=== PATIENT | male | born 1955 | race Caucasian/White ===

== ENCOUNTER 2021-08-07 10:04 | Outpatient (CLI) | payer OTHER, SELFPAY ==
--- NOTE | 2021-08-07 | ECG_ITS ---
Measurements Intervals [place] Rate: 54 P: 47 NC: 150 QRS: 48 QRSD: 84 T: 22 QT: 380 QTc: 362 Interpretive Statements SINUS BRADYCARDIA WITH SINUS ARRHYTHMIA BORDERLINE ECG Electronically Signed On 08-07-2021 13:09:53 CDT by Bill Goldsmith D.O.
--- NOTE | ~2021-08-07 | XR_ITS ---
EXAMINATION: XR chest 2V EXAM DATE: 08/07/2021 11:14 INDICATION: Carpal tunnel syndrome. TECHNIQUE: Frontal and lateral projections of the chest obtained and reviewed. There is no prior augustine dy for comparison. FINDINGS: Symmetric nodular densities probably patient's nipples. The lungs are otherwise clear. The re are no pleural effusions. The cardiomediastinal silhouette is within normal limits. There is no pneumothorax suspected. 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 Right anterior subcutaneous BB-like foreign body. IMPRESSION: 1. No acute cardiopulmonary findings. 2. 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 Osteoblastic disease not excludable. Consider checking PSA or follow-up no nemergent bone scan. Reviewed, dictated and finalized at location B. IMPRESSION: 1. No acute cardiopulmonary findings. 2. 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 Osteoblastic disease not excludable. Consider checki ng PSA or follow-up nonemergent bone scan.
[2021-08-07 10:37] LABS: Hematocrit 45.3 % (42.0-52.0); Hemoglobin 15.9 g/dL (14.0-18.0); Mean Corpuscular HGB Conc 35.1 g/dl (32-36); Mean Corpuscular Hemoglobin 30.6 pg (26-34); Mean Corpuscular Volume 87.1 fl (80-100); Mean Platelet Volume 10.3 fl (7.4-10.4); Platelet Count Result 196 k/mm3 (150-375); Red Cell Distribution Width 12.4 % (11.5-14.5); White Blood Count 6.2 K/mm3 (4.5-10.0)
[2021-08-07 10:47] LABS: Prothrombin Time 12.7 Seconds (11.1-14.7)
[2021-08-07 10:48] LABS: Partial Thromboplastin Time 27.5 SECONDS (22.3-36.8)
[2021-08-07 10:55] LABS: Alanine Aminotransferase 23 U/L (4-50); Albumin Level 4.3 g/dL (3.5-5.1); Alkaline Phosphatase 41 U/L (38-126); Anion Gap 8 mmol/L (8-16); Aspartate Amino Transferase 28 U/L (17-59); Blood Urea Nitrogen 13 mg/dL (9-20); Calcium 9.6 mg/dL (8.4-10.2); Carbon Dioxide 25 mmol/L (22-30); Chloride 104 mmol/L (98-107); Estimated Glomerular Filt Rate > 60; Glucose 108 mg/dL (65-110); Potassium 4.4 mmol/L (3.4-5.0); Sodium 137 mmol/L (137-145)
== END 2021-08-07 10:05 | disposition home or self-care (01) ==
PROVIDERS: PCP Internal Medicine; Visit Provider Orthopaedic Surgery
DX: Z01.812 Encounter for preprocedural laboratory examination (principal); G56.02 Carpal tunnel syndrome, left upper limb; M89.9 Disorder of bone, unspecified
CPT/HCPCS: 36415; 71046; 80053; 85027; 85610; 85730; 93005

== ENCOUNTER 2021-12-02 21:42 | Emergency (ER) | payer OTHER, SELFPAY ==
--- NOTE | ~2021-12-02 | XR_ITS ---
EXAMINATION: XR chest 2V EXAM DATE: 12/02/2021 22:12 INDICATION: Dizziness After Doing Situps/Working Out For 40+ min TECHNIQUE: Frontal and lateral projections of the chest obtained and reviewed. Comparison is made to prior examination from 08/07/2021. FINDINGS: The lungs are clear. There are no pleural effusions. The cardiomediastinal silhouette is within normal limits. There is no pneumothorax suspected. Mild to moderate thoracic spondylosis. T here is a BB-like foreign body in the right anterior subcutaneous tissues. There is no significant in terval change. IMPRESSION: No acute cardiopulmonary findings. Reviewed, dictated and finalized at location G. 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
[2021-12-02 21:46] VITALS: BP 158/82; PULSE 62; RESP 18; TEMP 36.4; O2SAT 100
--- NOTE | 2021-12-02 21:56 | ECG_ITS ---
Measurements Intervals [place] Rate: 65 P: 1 UT: 140 QRS: 34 QRSD: 81 T: 31 QT: 362 QTc: 377 Interpretive Statements SINUS RHYTHM BASELINE ARTIFACT- I, II, AVR, AVL, AVF, V3-V4 NORMAL ECG Electronically Signed On 12-03-2021 7:33:30 OUTREACH AND EDUCATION SOCIAL WORKER by Bill Goldsmith D.O.
[2021-12-02 22:05] VITALS: BP 149/91; PULSE 59
--- NOTE | 2021-12-02 22:06 | ED.DIZZY ---
HPI - Dizziness General Chief Complaint: Dizziness Stated Complaint: dizzy Time Seen by Provider: 12/02/21 21:55 Source: patient History of Present Illness HPI Narrative: Patient presents with dizziness scribed as a sensation of the room spinning and that he is going to pass out. He had symptoms starting 2 days ago when he was working out and again this evening. Symptoms this evening started approximately an hour ago and have resolved but now he has mild head pressure . Reports his symptoms have occurred around his workout routine reports he does 300 sit ups and then develops his symptoms. He is concerned symptom to his medication as he takes metoprolol just prior to his exercise routine. Denies association with his of breath any nausea or vomiting denies any chest pain associated with the symptoms. Denies any recent fevers, cough, congestion, recent hospitalizations, recent surgeries. Related Data Home Medications Medication Instructions Recorded Confirmed metoprolol tartrate 25 mg PO BID 12/02/21 12/02/21 Allergies Allergy/AdvReac Type Severity Reaction Status Date / Time No Known Allergies Allergy Verified 12/02/21 21:55 Review of Systems Review of Systems: CONSTITUTIONAL: Denies fever, chills, or sweats. EYES: Denies visual changes, redness, or discharge. ENT: Denies rhinorrhea, congestion, sore throat, or otalgia. CARDIOVASCULAR: Denies chest pain, palpitations, or edema. RESPIRATORY: Denies cough or dyspnea. GASTROINTESTINAL: Denies abdominal pain, nausea, vomiting, or diarrhea. GENITOURINARY: Denies dysuria or hematuria. SKIN: Denies rash or itching. MUSCULOSKELETAL: Denies back pain, joint pain, or myalgia. NEUROLOGIC: Denies headache, numbness, dizziness, or weakness. PSYCHIATRIC: Denies anxiety or depression. All systems reviewed & are unremarkable except as noted in HPI and below PMFSH Past Medical History Medical History (Updated 12/03/21 @ 00:00 by Roslyn Dailsa) Hypertension Social History Social History (Updated 12/02/21 @ 22:07 by Octavio Packer MD) Smoking status: Never smoker Exam Narrative: GENERAL: Well-appearing, well-nourished, and in no acute distress. HEAD: Normocephalic, atraumatic. EYES: PERRLA and EOMI. ENT: Nares clear, no rhinorrhea or epistaxis. Mucous membranes moist. NECK: Supple. No masses. No JVD CHEST: Clear to auscultation. No respiratory distress. No wheezes rales or rhonchi HEART: Regular rate and rhythm. No murmur heard. Normal peripheral pulses. ABDOMEN: Soft, nontender, nondistended, normal active bowel sounds. EXTREMITIES: Normal range of motion. No edema. SKIN: Warm, dry, no rash. NEURO: Cranial nerves II through XII are intact patient has 5 out of 5 strength in all extremities sensation intact to light touch in all extremities patient has no dysdiadochokinesia of motions no dysmetria with [id number] alert and oriented x3. PSYCH: Normal mood and affect. Course Reevaluation(s) Reevaluation #1: Patient reports complete resolution of his symptoms after Tylenol. Patient is comfortable with outpatient plan. Date: 12/02/21 Time: 23:09 Vital Signs Vital signs: Vital Signs Temperature 36.4 C 12/02/21 21:46 Pulse Rate 62 12/02/21 21:46 Respiratory Rate 18 12/02/21 21:46 Blood Pressure 158/82 H 12/02/21 21:46 Pulse Oximetry 100 12/02/21 21:46 Temperature 36.4 C 12/02/21 21:46 Pulse Rate 61 12/02/21 23:21 Respiratory Rate 20 12/02/21 23:21 Blood Pressure 136/87 12/02/21 23:21 Pulse Oximetry 98 12/02/21 23:21 MDM - Dizziness MDM Narrative Medical decision making narrative: H&P as above, vss, pt looks clinically well, exam without focal neurological deficits or cerebellar signs labs unremarkable, img unremarkable, additional labs/img considered, symptomatic relief available as needed, on reevaluation pt continues to looks clinically well. Symptoms of unclear etiology may be related to beta blockade with physi
[2021-12-02 22:13] LABS: Basophils Percent Auto 0.6 % (0.2-1.2); Eosinophils Absolute Auto 0.2 K/mm3 (0-0.3); Eosinophils Percent Auto 2.8 % (0-4.4); Hemoglobin 15.3 g/dL (14.0-18.0); Immature Granulocyte Absolute 0.01 K/mm3 (0.00-0.031); Immature Granulocyte Percent A 0.1 % (0-0.5); Lymphocytes Absolute Auto 2.62 K/mm3 (0.9-3.2); Mean Corpuscular HGB Conc 34.8 g/dl (32-36); Mean Corpuscular Volume 89.2 fl (80-100); Mean Platelet Volume 10.7 fl (7.4-10.4); Monocytes Absolute Auto 0.8 K/mm3 (0.1-0.6); Monocytes Percent Auto 10.9 % (2.6-8.5); Neutrophils Absolute Auto 3.5 K/mm3 (1.3-6.7); Neutrophils Percent Auto 48.6 % (45.5-73.1); Platelet Count Result 192 k/mm3 (150-375); Red Blood Count 4.93 M/mm3 (4.6-6.20); Red Cell Distribution Width 12.3 % (11.5-14.5); White Blood Count 7.1 K/mm3 (4.5-10.0)
[2021-12-02 22:17] VITALS: BP 157/93; PULSE 59
[2021-12-02 22:19] VITALS: BP 156/89; PULSE 56
[2021-12-02] MEDS: ACETAMINOPHEN 500 MG TABLET 1000 MG PO (22:28)
[2021-12-02 22:53] LABS: Alanine Aminotransferase 25 U/L (4-50); Albumin Level 4.2 g/dL (3.5-5.1); Alkaline Phosphatase 65 U/L (38-126); Anion Gap 7 mmol/L (8-16); Aspartate Amino Transferase 31 U/L (17-59); Bilirubin,Total 0.8 mg/dL (0.2-1.3); Blood Urea Nitrogen 13 mg/dL (9-20); Calcium 9.2 mg/dL (8.4-10.2); Carbon Dioxide 27 mmol/L (22-30); Chloride 104 mmol/L (98-107); Estimated CRCL calculation 76 ml/min; Estimated Glomerular Filt Rate > 60; Glucose 133 mg/dL (65-110); Potassium 3.8 mmol/L (3.4-5.0); Sodium 138 mmol/L (137-145)
[2021-12-02 23:21] VITALS: BP 136/87; PULSE 61; RESP 20; O2SAT 98
== END 2021-12-02 23:19 | disposition home or self-care (01) ==
PROVIDERS: Emergency Provider Emergency Medicine; PCP Internal Medicine
DX: R42 Dizziness and giddiness (principal); I10 Essential (primary) hypertension
CPT/HCPCS: 36415; 71046; 80053; 85025; 93005; 99284; A9270

== ENCOUNTER 2022-01-13 10:30 | Outpatient (CLI) | payer OTHER, SELFPAY ==
[2022-01-13 10:58] LABS: Hematocrit 44.9 % (42.0-52.0); Hemoglobin 15.2 g/dL (14.0-18.0); Mean Corpuscular HGB Conc 33.9 g/dl (32-36); Mean Corpuscular Hemoglobin 30.6 pg (26-34); Mean Corpuscular Volume 90.5 fl (80-100); Mean Platelet Volume 10.6 fl (7.4-10.4); Platelet Count Result 197 k/mm3 (150-375); Red Blood Count 4.96 M/mm3 (4.6-6.20); Red Cell Distribution Width 12.4 % (11.5-14.5); White Blood Count 5.8 K/mm3 (4.5-10.0)
[2022-01-13 11:09] LABS: Alanine Aminotransferase 23 U/L (4-50); Albumin Level 4.2 g/dL (3.5-5.1); Alkaline Phosphatase 45 U/L (38-126); Anion Gap 5 mmol/L (8-16); Aspartate Amino Transferase 31 U/L (17-59); Bilirubin,Total 1.6 mg/dL (0.2-1.3); Blood Urea Nitrogen 14 mg/dL (9-20); Calcium 9.1 mg/dL (8.4-10.2); Carbon Dioxide 28 mmol/L (22-30); Chloride 104 mmol/L (98-107); Estimated Glomerular Filt Rate > 60; Glucose 104 mg/dL (65-110); Potassium 4.5 mmol/L (3.4-5.0); Sodium 137 mmol/L (137-145)
== END 2022-01-13 10:31 | disposition home or self-care (01) ==
LOC: ANHLAB 10:37
PROVIDERS: PCP Internal Medicine; Visit Provider Orthopaedic Surgery
DX: Z01.812 Encounter for preprocedural laboratory examination (principal); G56.01 Carpal tunnel syndrome, right upper limb
CPT/HCPCS: 36415; 80053; 85027

== ENCOUNTER 2022-02-01 07:28 | Outpatient (CLI) | payer OTHER, SELFPAY ==
--- NOTE | ~2022-02-01 | US_ITS ---
EXAMINATION: US aorta [facility] DATE: 02/01/2022 08:02 INDICATION: Abdominal aortic aneurysm screening. TECHNIQUE: Grayscale, color Doppler, and pulsed Doppler images of the aorta and common iliac arteries were obtained. COMPARISON: None. FINDINGS: The aorta is normal in caliber and demonstrates atherosclerosis. The right common iliac artery is nor mal in caliber. The left common iliac artery is normal in caliber. IMPRESSION: 1. No abdominal aortic aneurysm. Reviewed, dictated and finalized at location A.
--- NOTE | ~2022-02-01 | NM_ITS ---
EXAMINATION: NM bone scan whole body DATE: 02/01/2022 11:54 INDICATION: Sclerotic bone lesion on prior rib radiographs. TECHNIQUE: 24.2 mCi Tc-99m HDP was administered intravenously. Delayed whole-body scintigrams were o btained. COMPARISON: Chest radiographs dated 08/07/2021 and 12/02/2021 FINDINGS: Typical pattern of likely degenerative joint centered uptake at the bilateral shoulders, hands and wr ists, knees and feet and ankles. Foci of increased uptake likely related to dental disease at the rig ht maxilla and bilaterally at the mandible. No other suspicious foci of abnormal bone uptake. Specifi barby no abnormal uptake associated with the likely benign sclerotic lesion at the posterolateral lef t fifth rib. IMPRESSION: 1. No bone lesions suspicious for malignancy. Specifically no abnormal uptake associated with the pre viously noted likely benign sclerotic lesion of the posterolateral left fifth rib. Reviewed, dictated and finalized at location B. IMPRESSION: 1. No bone lesions suspicious for malignancy. Specifically no abnormal uptake a ssociated with the previously noted likely benign sclerotic lesion of the poste rolateral left fifth rib.
== END 2022-02-01 07:29 | disposition home or self-care (01) ==
PROVIDERS: PCP Internal Medicine; Visit Provider Internal Medicine
DX: Z87.891 Personal history of nicotine dependence (principal); M89.9 Disorder of bone, unspecified
CPT/HCPCS: 76706; 78306; A9561

== ENCOUNTER 2022-04-22 17:54 | Emergency (ER) | payer OTHER, SELFPAY ==
--- NOTE | 2022-04-22 18:03 | ED.ABDPAIN ---
HPI - Abdominal Pain General Chief Complaint: Abdominal Pain Stated Complaint: nausea/abdominal pain Time Seen by Provider: 04/22/22 18:28 Source: patient and RN notes reviewed Mode of arrival: ambulatory Limitations: no limitations History of Present Illness HPI narrative: 66-year-old male presents with concern for vomiting, nausea, abdominal pain. He reports symptoms started today,Reports he had 2 normal bowel movements today. He ate breakfast as usual and began having a stomachache, had a lower abdominal pain causing him to double over. Reports he vomited which relieved his pain. He then felt fine. Reports sometime later he began having the abdominal pain again, made himself vomit which relieves the pain. He reports he may be having small amount of fluid leaking from his rectum. He reports feeling some general malaise. Denies fever, current abdominal pain, upper respiratory symptoms. Reports he took 2 COVID test today that were negative. He reports he has not ate much today due to his symptoms. MD elicited complaint: abdominal pain Related Data Home Medications Medication Instructions Recorded Confirmed krill 350 mg-omega-3 90 mg-dha 24 2 cap PO DAILY 12/15/20 04/22/22 mg-epa 50 xr-naivtgz-xligm capsule (MegaRed Adkins-3 Krill Oil) multivitamin with minerals 1 tablet PO DAILY 12/15/20 04/22/22 (Hair,Skin and Nails tablet) Allergies Allergy/AdvReac Type Severity Reaction Status Date / Time No Known Allergies Allergy Verified 04/22/22 18:30 Review of Systems Review of Systems: CONSTITUTIONAL: Reports malaise. Denies chills, sweats, or fever. ENT: Denies rhinorrhea, congestion, sinus pain, otalgia or sore throat. CARDIOVASCULAR: Denies chest pain, palpitations, or edema. RESPIRATORY: Denies cough or dyspnea. GASTROINTESTINAL: Denies current abdominal pain. Reports episodes of abdominal pain, nausea, vomiting. Denies diarrhea, reports rectal leaking GENITOURINARY: Denies dysuria or hematuria. MUSCULOSKELETAL: Denies myalgia. NEUROLOGIC: Denies headache. All systems reviewed & are unremarkable except as noted in HPI and below PMFSH Past Medical History Medical History Cancer Colonoscopy planned 05/2019 Hypertension Family History Family History Father Cancer Social History Social History Smoking status: Never smoker Alcohol intake: never Substance use: never Substance use type: does not use Additional occupation/education comments: [employer] Gender identity (if verbalized by the patient): Male Comments At time of signature, agree with nursing past medical, surgical, social and family history. There is no relevant family history pertinent to the presenting complaint Exam Narrative: GENERAL: Well-appearing, and in no acute distress. HEAD: Normocephalic, atraumatic. EYES: PERRLA, conjunctivae clear ENT: Nares clear. Mucous membranes moist. NECK: Supple. CHEST: Speaks in full sentences. No respiratory distress. HEART: Regular rate and rhythm. ABDOMEN: Soft, obese, nondistended. No guarding, rebound tenderness, or rigid. No pulsatilla masses. Bowel sounds present in all four quadrants. No organomegaly. Negative Salazar?s sign. No periumbilical tenderness. No Supra public tenderness or distension. No hernia noted. No scars or surface trauma. SKIN: Warm, dry, no rash. NEURO: Alert and oriented x3. PSYCH: Normal mood and affect Course Course Emergency Course: Discussed limited diagnostic capability at [facility] for abdominal pain. Offered transfer to emergency department for further evaluation, patient does not choose to go to the emergency room at this time. Patient will be discharged with Zofran and strict instructions for return to the emergency room and [facility]
[2022-04-22 18:13] VITALS: BP 148/88; PULSE 85; RESP 18; TEMP 36.8; O2SAT 98
== END 2022-04-22 18:41 | disposition home or self-care (01) ==
PROVIDERS: Emergency Provider Nurse Practitioner; PCP Internal Medicine
DX: R10.9 Unspecified abdominal pain (principal); I10 Essential (primary) hypertension
CPT/HCPCS: 99213; G0463

== ENCOUNTER → 2022-04-26 11:48 | Outpatient (CLI) | payer OTHER, SELFPAY ==
--- NOTE | ~2022-04-26 | US_ITS ---
EXAMINATION: US carotid duplex BI DATE: 04/26/2022 12:09 INDICATION: Left carotid bruit TECHNIQUE: Grayscale, color Doppler, and pulsed Doppler images of the cervical carotid arteries were obtained. The degree of vessel stenosis is placed in one of the following categories: normal, <50%, 5 0-69%, >=70% but less than near-occlusion, near-occlusion, or total occlusion. Note that percent sten osis relative to normal distal artery lumen diameter is indirectly measured from velocity measurement s as described by Miky, et al. Radiology 2003; 229:340-346. Notes: Normal: Peak systolic velocity <125 centimeters/sec and no plaque <50%. Peak systolic velocity <125 ( EDV <40; ICA/CCA PSV ratio <2.0; used these factors only a tandem lesions or low cardiac output or co ntralateral disease) 50-69 %: PSV 125-230 (EDV 40-100; ratio 2-4) >= 70% but less than near occlusion: PSV greater than 230 (EDV > 100; ratio> 4.0) Near Occlusion: PSV that is variable; markedly narrowed lumen Occlusion: Absent flow on color/spectral Doppler and no lumen on banuelos scale. COMPARISON: 02/01/2022 FINDINGS: RIGHT: The right common carotid artery (CCA) peak systolic velocity (PSV) is 100 cm/s. The right internal ca rotid artery (ICA) PSV is 69 cm/s. The right ICA end-diastolic velocity (EDV) is 23 cm/s. The right I CA/CCA PSV ratio is 0.7. The external carotid artery (ECA) PSV is 108 cm/s. There is antegrade flow i n the right vertebral artery. LEFT: The left CCA PSV is 76 cm/s. The left ICA PSV is 74 cm/s. The left ICA EDV is 24 cm/s. The left ICA/C CA PSV ratio is 1.0. The ECA PSV is 129 cm/s. There is antegrade flow in the left vertebral artery. IMPRESSION: 1. Less than 50% stenosis in the right internal carotid artery by sonographic criteria. 2. Less than 50% stenosis in the left internal carotid artery by sonographic criteria. Reviewed, dictated and finalized at location A. IMPRESSION: 1. Less than 50% stenosis in the right internal carotid artery by sonographic c reilly. 2. Less than 50% stenosis in the left internal carotid artery by sonographic cr erlin.
== END ==
PROVIDERS: PCP Internal Medicine; Visit Provider Internal Medicine Cardiovascular Disease
DX: R09.89 Other specified symptoms and signs involving the circulatory and respiratory systems (principal); I65.23 Occlusion and stenosis of bilateral carotid arteries
CPT/HCPCS: 93880

== ENCOUNTER → 2023-03-17 10:07 | Outpatient (CLI) | payer OTHER, SELFPAY ==
--- NOTE | ~2023-03-17 | XR_ITS ---
Right Shoulder Technique: AP and scapular Y views were obtained. Clinical History: Pain Findings: No fracture or dislocation is seen. Osseous alignment is anatomic. The glenohumeral and acr omioclavicular joint spaces are preserved. Soft tissues are unremarkable. Impression: Unremarkable right shoulder radiographs. Reviewed, dictated and finalized at [facility]. Impression: Unremarkable right shoulder radiographs.
== END ==
PROVIDERS: PCP Family Medicine; Visit Provider Family Medicine
DX: M25.511 Pain in right shoulder (principal); Z12.5 Encounter for screening for malignant neoplasm of prostate; Z13.220 Encounter for screening for lipoid disorders; Z13.228 Encounter for screening for other metabolic disorders
CPT/HCPCS: 73030

== ENCOUNTER 2023-05-26 08:00 | Outpatient (RCR) | payer OTHER, SELFPAY ==
--- NOTE | 2023-03-24 09:54 | PTOPEVAL1 ---
Assessment and note entered by Victoria Garcia, PT Evaluation Information Assessment Status Evaluation Diagnosis R shoulder pain Onset 1 year ago Subjective Information gradual increase in pain of shoulder, intermittent over the past year; no trauma or injury; xray negative; do exercises for shoulder-long time history of doing: use hand wt for : 15#, 60 reps for overhead; 35# for elbow flexion x 10 reps; 35# for tricep overhead both hands; R hand dominant; retired; can do all home tasks; most pain at night with sleeping and reaching arm up overhead; Reported Pain Level Pain Score Self Report R shoulder Additional Pain Score Comments pain range in the past week 0-5/10; sharp pain-- posterior and lateral shoulder; some crunching in shoulder when move it; L arm is starting to have some of the same troubles as R, but not as bad; increase with lying on his R side- awaken from sleep 2x/night; jars some with walking; decrease pain with rest arm, advil; exercises with hand weights does not increase his pain; have not used heat, ice for shoulder--instruct on PRN use, 10-15 minutes; discussed support to arm with sitting; Assessment PT Clinical Summary Lenny has the diagnosis of R shoulder pain. He reports gradual increase in pain over the past year, intermittent, and awakens him from sleeping, unable to lie on R side. 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 The shoulder xray is negative. He is active and does fitness exercises with hand weights for shoulders daily. With the evaluation: his R shoulder ROM is WNL, with reports of tight and sounds from his shoulder weakness over scapular/posterior musculature; pain with palpation over anterior shoulder joint and resisted motions of shoulder abduction and ER. He has rounded shoulder posture. Skilled PT services are indicated for treatment of R shoulder impingement syndrome: modalities PRN for pain control; therapeutic exercises to improve posture and positioning of GH joint; education for h
--- NOTE | 2023-04-28 09:51 | PTOPPROG ---
Assessment and note entered by Victoria Garcia, PT Evaluation Information Assessment Status Progress Diagnosis R shoulder pain Onset 1 year ago Subjective Information Lenny reports: have been doing the exercises- helping; has not been using heat or ice--run out of time and do not do; have mobility in arm, but lose strength with forward reaching to lift something--ie-- washing car and lifting hose, reaching to top kitchen cabinet; Assessment PT Clinical Summary Lenny has received the PT evaluation and one treatment session. At the initial eval, he wanted to do the exercises on his own at home first. Compared to the initial evaluation: pain rating is worst, from 0-5/10 to 3-7/10, over anterior shoulder; previously was anterior and posterior aspects of shoulder; reported sleeping tolerance is worse, was 2x/night and now 3-4x/night is awakening due to pain in shoulder; active shoulder flexion, abduction and IR motions have increased, with flexion pain increases; strength of posterior shoulder/scapular complex have increased. The goals were partially met. Continue PT treatment, to further decrease pain and increase strength, with improved posture and positioning of GH to decrease impingement. Plan of Care Interventions Electrical Stimulation,Hot Pack/Cold Pack,Manual Therapy,Neuro Re-education,Patient Education,Therapeutic Activities,Therapeutic Exercise,Ultrasound,Other Other Interventions taping, IASTM PT Services Indicated Yes Treatment Frequency and 1x/wk for 4 weeks Duration These treatments will address the objective and functional deficits as defined above. The patient will be advanced safely and appropriately in order for the patient to progress towards his/her prior level of function. Additional exercises will be introduced and as well as a comprehensive home exercise program upon discharge, if needed, ?to ensure carryover of functional gains achieved in the clinic. This treatment plan has been reviewed and agreement upon by the patient.
--- NOTE | 2023-04-28 09:52 | OPREHPOC ---
Outpatient Therapy Plan of Care This is a Multidisciplinary Plan of Care that may contain components documented by all disciplines (PT, OT, and ST.) PT Problem 1 PT Problem #1 Knowledge Deficit PT Goal 1 Goal 1* indep with home exercise program 2* pt maintain correct shoulder position during session Progress Partially Met Comment 04-28-23 progress met goal 1 continue towards goals PT Problem 2 PT Problem #2 Pain PT Goal 1 Goal 1* pt report R shoulder pain rating of 2/10 at worst 2* pt report with sleeping, no awakening from sleep due to shoulder pain Progress Not Met Comment 04-28-23 progress goals not met: #1 7/10 at worst; #2- awaken 3-4x/ night NEW GOALS: 1* pain rating 4/10 at worst 2* pt report with sleeping, awaken 2x/night due to shoulder pain PT Problem 3 PT Problem #3 Impaired Strength PT Goal 1 Goal increase strength of R shoulder/scapular complex: pt perform 15 reps 1* prone scapular retraction with arm at 90' and 2 # hand weight 2* prone scapular retraction with arm overhead and 2# hand weight 3* standing shoulder flexion without an increase in pain 4* standing shoulder abduction without an increase in pain Progress Partially Met Comment 04-28-23 progress met goal 1 continue towards goals 2 & 3
--- NOTE | 2023-05-26 08:42 | PTOPDC ---
Assessment and note entered by Victoria Garcia, PT Evaluation Information Assessment Status Discharge Diagnosis R shoulder pain Onset 1 year ago Subjective Information Lenny reports: shoulder is better, still pops sometimes, hurts when go to move it quickly without thinking; doing all the exercises at home; able to reach up high into the cabinets now; am not doing any overhead weight with arms; Reported Pain Level Pain Score Self Report Additional Pain Score Comments pain range in the past week 0-3/10; awaken 2x/ night due to shoulder pain- hurts when lie on R shoulder; sleep semi-prone with pillow under stomach-- change with neck to R/L side; use ice PRN; occasionally takes aleve before sleeping to help the pain; Assessment PT Clinical Summary Lenny has received 6 PT sessions. Compared to the last reeval: improved in all areas pain has decreased from 3-7/10 to 0-3/10; sleeping improved from awakening 3-4x/night to 2x/ night; posture of shoulder; active ROM shoulder is without pain; home activities; HEP and education completed. He continues to have pain with quick motions/ jerking of shoulder. The goals were achieved. Discharge PT services. Plan of Care PT Services Indicated No
== END 2023-05-26 13:11 | disposition home or self-care (01) ==
LOC: ANHPT 08:00
PROVIDERS: PCP Family Medicine; Visit Provider Family Medicine
DX: M25.511 Pain in right shoulder (principal)
CPT/HCPCS: 97035; 97110; 97140; 97161; 97530

== ENCOUNTER → 2023-09-30 09:39 | Outpatient (CLI) | payer OTHER, SELFPAY ==
--- NOTE | ~2023-09-30 | US_ITS ---
US soft tissue groin RT DATE: 09/30/2023 09:52 INDICATION: Right groin pain; evaluate for hernia. TECHNIQUE: Real-time color flow imaging of right groin area, including Valsalva maneuver COMPARISON: None FINDINGS: There is a discrete hypoechoic area in the right groin medial to the common femoral vessels which increases in size to approximately 2.5 x 1.4 x 2.1 cm dimension with Valsalva maneuver, highly suggestive of right inguinal hernia. This can be confirmed by CT abdomen pelvis examination. IMPRESSION: Probable right inguinal hernia Reviewed, dictated and finalized at Location A. Reviewed, dictated and finalized at location A. 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
== END ==
PROVIDERS: PCP Family Medicine; Visit Provider Family Medicine
DX: K40.90 Unilateral inguinal hernia, without obstruction or gangrene, not specified as recurrent (principal); S76.211A Strain of adductor muscle, fascia and tendon of right thigh, initial encounter; X58.XXXA Exposure to other specified factors, initial encounter
CPT/HCPCS: 76882

== ENCOUNTER 2023-10-28 10:51 | Outpatient (CLI) | payer OTHER, SELFPAY ==
--- NOTE | 2023-10-28 11:12 | ECG_ITS ---
Measurements Intervals [place] Rate: 73 P: 22 WI: 148 QRS: 36 QRSD: 77 T: 41 QT: 349 QTc: 386 Interpretive Statements SINUS RHYTHM DELAYED PRECORDIAL R/S TRANSITION BASELINE ARTIFACT- I, II, III, AVL BORDERLINE ECG COMPARED TO ECG 08/07/2021 11:54:14 SINUS RHYTHM NOW PRESENT Electronically Signed On 10-28-2023 12:18:50 ENGINEERING DEPARTMENT CHAIR by Bill Goldsmith D.O.
== END 2023-10-28 10:52 | disposition home or self-care (01) ==
LOC: ANHSURGERY 10:53
PROVIDERS: PCP Family Medicine; Visit Provider Surgery
DX: K40.90 Unilateral inguinal hernia, without obstruction or gangrene, not specified as recurrent (principal); E78.00 Pure hypercholesterolemia, unspecified; Z01.818 Encounter for other preprocedural examination; R94.31 Abnormal electrocardiogram [ECG] [EKG]
CPT/HCPCS: 36415; 86850; 86900; 86901; 93005

== ENCOUNTER 2023-11-03 01:06 | Day surgery (SDC) | payer OTHER, SELFPAY ==
--- NOTE | 2023-10-27 08:36 | PC.NURSE ---
Report to the Outpatient Waiting Room, entrance under the green pavilion located off [facility], at time __1200 on date __11/03/23 . Planned Procedure Time: _1400 . Time changes happen often and if your time is changed the preop area will call you the afternoon before. - You and your visitor will be asked to self-screen and do not enter if you have any COVID symptoms. - A mask is optional within the hospital at this time. Patients may have clear liquids (water, carbonated beverages, clear teas, apple juice) until 3 hours prior to surgery ( 11:00 AM)with a maximum of 20 ounces. - No food from midnight until time of surgery Take the following medications with a SIP of water the morning of surgery: __METOPROLOL DO NOT STOP ANY OF YOUR OTHER PRESCRIPTION MEDICATIONS PRIOR TO SURGERY ?EXCEPT THE FOLLOWING Medications to discontinue per physician ALL VITAMINS AND SUPPLEMENTS 3 DAYS PRE OP LAST DOSE 10/30/23 Please no make-up, nail maldivian, hairspray, perfume, deodorant, or body powder the day of surgery. No jewelry (including any body piercings) or valuables the day of surgery, leave them at home. Please take a shower or bath the night before, or the morning of, surgery with an antibacterial soap. Wear comfortable, loose fitting clothing. Children are encouraged to wear pajamas. - Jewelry must be removed prior to entering the operating room. Rings and piercings that are not removed may be cut off. - The hospital will not accept responsibility for valuables. - Please leave all valuables, including medications, at home the day of surgery. If you are going home after surgery, a licensed taxi driver must drive you home. - NO public transportation without another adult if you receive anesthesia. - We recommend that an adult stay with you for 24 hours following discharge. - We also recommend that you do not drive, make important decision, drink alcoholic beverages, or take any drugs that were not prescribed by your health care provider for at least 24 hours after your discharge time. Follow any additional instructions given to you from your surgeon. If you or anyone in your household have experienced Covid symptoms in the past week, please notify your surgeon or the nurse liaison at the phone number below for possible testing. Telephone instructions given to _PATIENT and asked if any additional questions and then verbalized understanding. Patient advised to call surgeon office or pre surgery nurse liaison [phone] if any additional questions.
[2023-10-27 08:49] VITALS: BMI 29.4
[2023-11-03] VITALS (8 sets, daily range): BP systolic 119–140; BP diastolic 76–89; PULSE 74–94; RESP 12–16; TEMP 36.2–36.4; O2SAT 97–100
--- NOTE | 2023-11-03 11:57 | WPDHPUPDATE1 ---
History and Physical Update Update Date/Time: 11/03/23 11:57 History and Physical has been reviewed, including an updated exam of the patient. There are NO changes in the patient's condition. Risks, benefits, and alternatives have been discussed and questions answered. Patient agrees to proceed with procedure.
[2023-11-03] MEDS: ACETAMINOPHEN 500 MG TABLET 1000 MG PO (12:52)
[2023-11-03] MEDS: LACTATED RINGERS 1,000 ML 30 ML IV CONT ×3 (12:54→15:58)
[2023-11-03] MEDS: KETOROLAC 15 MG/ML VIAL (*BKC) IV PUSH (12:54)
--- NOTE | 2023-11-03 13:49 | WPDANESEPPF ---
Anes - Initial Pre Proc Eval Procedure: Operation Date: 11/03/23 14:00 Proposed Procedures p Robotic Assisted Right Inguinal Hernia Repair with Mesh - Radha Curiel MD Date/Time: 11/03/23 13:49 Surgeon: Radha Curiel MD Pre Op Diagnosis: Right Inguinal Hernia Patient Data Age: 68 Gender: M Height: 1.68 m Weight: 85.7 kg Last Vital Signs Temp 97.6 F 11/03/23 12:58 Pulse 82 11/03/23 12:58 Resp 16 11/03/23 12:58 BP 125/79 11/03/23 12:58 Pulse Ox 98 11/03/23 12:58 O2 Del Method Room Air 11/03/23 12:58 Allergies Allergy/AdvReac Type Severity Reaction Status Date / Time No Known Allergies Allergy Verified 11/03/23 11:52 Home Medications Medication Instructions Recorded Confirmed Type krill 350 mg-omega-3 90 mg-dha 24 2 cap PO DAILY 12/15/20 10/27/23 History mg-epa 50 nx-[id number]-ohbtc capsule (MegaRed Pearcy-3 Krill Oil) multivitamin with minerals 1 tablet PO DAILY 12/15/20 10/27/23 History (Hair,Skin and Nails tablet) turmeric 100 mg-maria elena 150 1 cap PO DAILY 03/17/23 10/27/23 History mg-olive 50 mg-oreg 150 mg-capryl capsule metoprolol succinate 25 mg See Rx Instructions .Route 06/01/23 10/27/23 Rx tablet,extended release 24 hr .COMPLEX #90 tabs rosuvastatin 5 mg tablet (Crestor) 5 mg PO DAILY #90 tabs 09/16/23 10/27/23 Rx Patient hx anesthesia problems: none Family hx anesthesia problems: none Results Review: All pre-operative results and documents have been reviewed as part of the pre-operative evaluation. [facility] Past Medical History Medical History Cancer Colonoscopy planned 05/2019 Hypertension Surgical History Surgical History History of carpal tunnel surgery of left wrist (~08/2021) History of carpal tunnel surgery of right wrist (~12/2021) History of colon resection (~2013) Hx of LASIK (~2000) Family History Family History Father Cancer Other Diabetes mellitus Social History Social History Smoking packs per day: 1 Smoking cigarettes per day: 20.0 Years smoked: 17 Smoking pack-years: 17.00 Smoking status: Former smoker Tobacco type: cigarettes Smoking end date: 10/10/88 Alcohol intake: current Alcohol use details: socially Substance use: never Substance use type: does not use Lack of Transportation: No Lack of Food: Never True Current Housing: I Have Housing Concerned About Future Housing: No Difficulty Paying Gas/Electric Bills: No Difficulty Paying for Meds: No Currently Unemployed: No Education: Decline to Answer Difficulty w/ Childcare or Family Care: No Living arrangements: alone Occupation/Education: retired Additional occupation/education comments: [employer] Gender identity (if verbalized by the patient): Male Spiritual care concerns: No Anes - Eval Final PreProcedure Day of Procedure 11/03/23 13:49 Patient weight: obese Heart: regular rate and rhythm Lungs: clear to auscultation Airway: Mallampati scale class II Neurological: alert and oriented Last oral intake: >/= 8 hours ASA classification: III Emergent: no Anesthetic plan: proceed Anesthesia type and monitoring: general ETT and standard monitoring Results Review: All pre-operative results and documents have been reviewed as part of the pre-operative evaluation. Informed Consent: The patient's anesthetic plan and its attendant risks and benefits were discussed with the patient/family/POA. Questions were solicited and answers provided to the satisfaction of the patient/family/POA.
[2023-11-03] MEDS: ceFAZolin 2 GM/D5W 50 ML 2 GM/50 ML BAG IVPB (14:05)
[2023-11-03] MEDS: BUPIVACAINE/EPINEPHRINE 0.5% 30 ML VIAL INFILTRATE (14:37)
[2023-11-03] MEDS: ONDANSETRON INJ 4 MG/2 ML VIAL IV PUSH (15:30)
--- NOTE | 2023-11-03 15:30 | P.OP_ITS ---
Procedure Note - Detailed Date of Procedure 11/03/23 Pre-op Diagnosis Right Inguinal Hernia Post-op Diagnosis Same Procedure Performed robotic assisted right inguinal hernia repair with mesh Surgeon Radha Curiel MD Anesthesia General Indications 68-year-old male with progressively worsening right inguinal hernia over the last few weeks Findings pantaloon right inguinal hernia Description of Procedure Patient was brought into the operating room and placed in the supine position. After adequate induction of general anesthesia, the patient was prepped and draped in normal sterile fashion. A time-out was then done to verify the patient's identity, as well as the procedure being performed. Began by making a 8 mm incision in the supraumbilical region, a Veress needle was then placed into the peritoneal cavity. CO2 gas was then insufflated and after adequate pneumoperitoneum was achieved, the Veress needle was removed. I then placed an 8 mm trocar through this incision. I then placed the endoscope through this trocar site and under direct visualization placed 2 further 8 mm ports in the right and left mid abdomen. The [employer] robot was then docked to the 3 trocar sites. I then scrubbed out and went to the robotic console. Upon examining the pelvis, it was noted that the patient had a moderate right inguinal hernia. The left side was examined and no hernia defect was noted. I began by making a preperitoneal flap approximately 6 cm superior to the defect. This flap was carried medially past the umbilical ligaments in laterally to the transversalis. It then began dissection of my medial compartment taking this down to the pubic tubercle. There was a small direct defect that was easily reduced back into the preperitoneal space. I then began the lateral dissection taking this down to the transversalis fascia. Once these compartments were achieved, I began dissection around the cord structures. A moderate indirect hernia was noted at this point. Using careful dissection, was able to reduce indirect hernia sac off the cord structures. There was also a large lipoma of the cord that was reduced back into the preperitoneal space. Once this was adequately done, I went ahead and placed a large piece of 3D Max mesh into the abdominal cavity. The mesh was carefully positioned, centering the center of the mesh over the indirect defect. Once this was done, was very satisfied with our repair. Using 3-0 Vicryl sutures, I tacked the mesh medially to Tang's ligament. Two lateral sutures were placed from the mesh to the transversalis fascia. I then closed the peritoneal flap with a running 2.0 V Lock suture. The abdomen was then desufflated, and all ports were removed. All incisions were then closed with the 4.0 monocryl suture. Dermabond was placed on each wound. The patient tolerated the procedure well, was extubated in the operating room postoperatively, and will now be transferred to the recovery room in stable condition. Implants large 3DMax mesh Estimated Blood Loss 10 Drains No Packing No Pathology None sent Complications No immediate complications Condition Stable Disposition PACU [facility] Billing Surgery - Charge Forward: Surgery Billing
[2023-11-03] MEDS: oxyCODONE HCL (*CRX) 5 MG TAB IR PO (16:35)
[2023-11-03] MEDS: diphenhydrAMINE HCl INJ 50 MG/ML VIAL 12.5 MG IV PUSH (17:16)
== END 2023-11-03 15:55 | disposition home or self-care (01) ==
PROVIDERS: PCP Family Medicine; Visit Provider Surgery
PROC: 8E0Y4CZ Robotic Assisted Procedure of Lower Extremity, Percutaneous Endoscopic Approach (ICD-10-PCS; CPT 49650; principal; 2023-11-03 14:00)
DX: K40.90 Unilateral inguinal hernia, without obstruction or gangrene, not specified as recurrent (principal); I10 Essential (primary) hypertension; E66.9 Obesity, unspecified; Z68.30 Body mass index [BMI] 30.0-30.9, adult; Z98.890 Other specified postprocedural states; Z90.49 Acquired absence of other specified parts of digestive tract; Z87.891 Personal history of nicotine dependence; Z85.9 Personal history of malignant neoplasm, unspecified; Z80.9 Family history of malignant neoplasm, unspecified
CPT/HCPCS: 49650; S2900; A9270; C1781; J0690; J1100; J1170; J1200; J1596; J1885; J2250; J2405; J2704; J2710; J3010; J7120

== ENCOUNTER 2024-04-22 15:11 | Emergency (ER) | payer OTHER, SELFPAY ==
--- NOTE | ~2024-04-22 | CT_ITS ---
Noncontrast CT scan of the cervical spine Technique: Multiple contiguous axial [address] images of the cervical spine were obtained and rec onstructed in 2D sagittal and coronal planes on the acquisition scanner. Dose reduction technique was used on this scan by utilizing automated exposure control, adjustment of the mA and/or kV according to patient size. The dose-length product (DLP) was 681.00 mGy-cm. Clinical History: Pain Findings: No acute fracture. There is reversal of the normal cervical lordosis. There is 3 mm anterol isthesis of C3 over C4. There is severe degenerative disc narrowing C3-C4, C5-C6, and C6-C7.. There i s fusion of the right C2-C3 facet joint. There is partial fusion across the C2-C3 disc space. There is disc osteophyte complex and facet arthropathy at C3-C4, with severe bilateral neural foramin al narrowing. There is bilateral neural foraminal narrowing at C4-C5. There is bilateral neural gina inal narrowing at C5-C6, disc osteophyte complex. There is bilateral neural foraminal narrowing at C6 -C7, with disc osteophyte complex. No prevertebral soft tissue swelling. Impression: No acute fracture. 3 mm anterolisthesis of C3 over C4. Moderate to advanced degenerative spondylosis, as above. Reviewed, dictated and finalized at [facility]. Impression: No acute fracture. 3 mm anterolisthesis of C3 over C4. Moderate to advanced degenerative spondylosis, as above.
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
[2024-04-22 15:27] VITALS: BP 154/89; PULSE 83; RESP 20; TEMP 36.3; O2SAT 99
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
[2024-04-22] MEDS: CYCLOBENZAPRINE HCL 10 MG TABLET PO (19:00)
[2024-04-22] MEDS: ACETAMINOPHEN 500 MG TABLET 1000 MG PO (19:00)
== END 2024-04-22 20:25 | disposition home or self-care (01) ==
PROVIDERS: Emergency Provider Physician Assistant; PCP Family Medicine
DX: S20.213A Contusion of bilateral front wall of thorax, initial encounter (principal); M43.12 Spondylolisthesis, cervical region; I10 Essential (primary) hypertension; Z87.891 Personal history of nicotine dependence; Z85.038 Personal history of other malignant neoplasm of large intestine; Z90.49 Acquired absence of other specified parts of digestive tract; M47.812 Spondylosis without myelopathy or radiculopathy, cervical region; V49.40XA Driver injured in collision with unspecified motor vehicles in traffic accident, initial encounter
CPT/HCPCS: 70450; 71046; 71110; 72125; 99284; A9270

== ENCOUNTER 2024-06-12 10:15 | Outpatient (RCR) | payer OTHER, SELFPAY ==
--- NOTE | 2024-05-08 16:31 | OPREHPOC ---
Outpatient Therapy Plan of Care This is a Multidisciplinary Plan of Care that may contain components documented by all disciplines (PT, OT, and ST.) PT Problem 1 PT Problem #1 Knowledge Deficit PT Goal 1 Goal Pt to be IND with issued HEP Target Visit 4 PT Problem 2 PT Problem #2 Pain PT Goal 1 Goal Pt to report L shoulder pain no greater than 3/10 in the last week. Target Visit 10 PT Goal 2 Goal Pt to report 75% improvement in overall symptoms. Target Visit 10 PT Problem 3 PT Problem #3 Impaired Range of Motion PT Goal 1 Goal Pt to improve active cervical rotation to 55 deg. Target Visit 10 PT Goal 2 Goal Pt to improve active shoulder flexion to 140 deg and active shoulder abduction to 130 deg. Target Visit 10 PT Problem 4 PT Problem #4 Impaired Strength PT Goal 1 Goal Pt to improve gross shoulder strength to 4+/5. Target Visit 10 PT Goal 2 Goal Pt to be able to lift 5lb overhead without an increase in pain. Target Visit 10
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
--- NOTE | 2024-05-30 09:53 | PCPTNOTE ---
Patient was canceled 05/23/24 due to therapist out with illness.
--- NOTE | 2024-05-30 09:58 | PCPTNOTE ---
Patient was canceled 05/25/24 due to therapist out with illness.
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
== END 2024-06-12 13:10 | disposition home or self-care (01) ==
LOC: ANHGOSHPT 10:15
PROVIDERS: PCP Family Medicine; Visit Provider Family Medicine
DX: M25.512 Pain in left shoulder (principal)
CPT/HCPCS: 97014; 97110; 97140; 97161; 97530; G0283

== ENCOUNTER 2024-08-22 14:09 | Emergency (ER) | payer OTHER, SELFPAY ==
[2024-08-22 14:18] VITALS: BP 145/85; PULSE 73; RESP 18; TEMP 36.6; O2SAT 99
--- NOTE | 2024-08-22 14:27 | ED_ITS ---
HPI - General Adult General Chief complaint: Dental/Oral Stated complaint: neck swelling Time Seen by Provider: 08/22/24 14:27 Source: patient Mode of arrival: ambulatory Limitations: no limitations History of Present Illness HPI narrative: 69-year-old male presents with complaint of dental pain for 2 days. patient woke up this morning and dental pain had improved but had dental appointment scheduled so he went any way. Patient saw his dentist and had x-rays completed in and was told no issues wrong with his tooth. Patient states about 30 minutes after leaving dental office he had aching to jaw and swelling. Jaw aching improved after taking Advil but continues to have swelling. All symptoms reviewed and negative except as noted above. Related Data Home Medications Medication Instructions Recorded Confirmed multivitamin with minerals 1 tablet PO DAILY 12/15/20 08/22/24 (Hair,Skin and Nails tablet) turmeric 100 mg-maria elena 150 1 cap PO DAILY 03/17/23 08/22/24 mg-olive 50 mg-oreg 150 mg-capryl capsule Allergies Allergy/AdvReac Type Severity Reaction Status Date / Time No Known Allergies Allergy Verified 05/01/24 11:07 Review of Systems Review of Systems: CONSTITUTIONAL: Denies fever, chills, or sweats. EYES: Denies visual changes, redness, or discharge. ENT: Denies rhinorrhea, congestion, sore throat, or otalgia. Reports left lower dental pain, jaw pain, swelling CARDIOVASCULAR: Denies chest pain, palpitations, or edema. RESPIRATORY: Denies cough or dyspnea. GASTROINTESTINAL: Denies abdominal pain, nausea, vomiting, or diarrhea. GENITOURINARY: Denies dysuria or hematuria. SKIN: Denies rash or itching. MUSCULOSKELETAL: Denies back pain, joint pain, or myalgia. NEUROLOGIC: Denies headache, numbness, or weakness. PSYCHIATRIC: Denies anxiety or depression. All other systems reviewed are negative, except as documented in HPI. [facility] Past Medical History Medical History Cancer Colonoscopy planned 05/2019 Hypertension Surgical History Surgical History History of carpal tunnel surgery of left wrist (~08/2021) History of carpal tunnel surgery of right wrist (~12/2021) History of colon resection (~2013) History of right inguinal hernia repair robotic assisted right inguinal hernia repair with mesh 11/03/[address] Radha Loomis of [facility] (~1999) Family History Family History Father Cancer Other Diabetes mellitus Social History Social History Smoking packs per day: 1 Smoking cigarettes per day: 20.0 Years smoked: 17 Smoking pack-years: 17.00 Smoking status: Former smoker Tobacco type: cigarettes Smoking end date: 10/10/88 Alcohol intake: current Alcohol use details: socially Substance use: never Substance use type: does not use Do You Feel Safe in your Home?: Yes Lack of Transportation: No Lack of Food: Never True Current Housing: I Have Housing Concerned About Future Housing: No Difficulty Paying Gas/Electric Bills: No Difficulty Paying for Meds: No Currently Unemployed: No Education: Trade/Vocational Certificate Difficulty w/ Childcare or Family Care: No Living arrangements: alone Occupation/Education: retired Additional occupation/education comments: [employer] Gender identity (if verbalized by the patient): Male Spiritual care concerns: No Comments At time of signature, agree with nursing past medical, surgical, social and family history. There is no relevant family history pertinent to the presenting complaint. Exam Narrative: GENERAL: This is a well-nourished, well-developed patient, in no apparent distress. HEAD: normocephalic, atraumatic. EYES: PERRL. Sclera clear/white. Vision is grossly intact. EARS: External ears normal NOSE: External nose normal THROAT: Mucous membranes moist, posterior pharynx clear. NECK: Neck supple, non-tender, L tonsillar lymph node enlarged-nontender. NO masses or thyromegaly. CARDIOVASCULAR: Regular rate and rhythm without murmurs, gallops, or rubs. RESPIRATORY: Clear to auscultation. Breath sounds equal bilaterally. No wheezes, rales, or rhonchi. SKIN: warm, Dry, intact with no suspicious lesions or rash, good texture and turgor. NEURO: awake, alert, and oriented to person, place and time. There were no obvious focal neurologic abnormalities. EXTREMITIES: No joint tenderness, effusion, or edema noted. Course Course Level of Care: Express Care Visit Vital Signs Vital signs: Vital Signs Temperature 36.6 C 08/22/24 14:18 Pulse Rate 73 08/22/24 14:18 Respiratory Rate 18 08/22/24 14:18 Blood Pressure 145/85 H 08/22/24 14:18 Pulse Oximetry 99 08/22/24 14:18 Oxygen Delivery Room Air 08/22/24 14:18 Temperature 36.6 C 08/22/24 14:18 Pulse Rate 73 08/22/24 14:18 Respiratory Rate 18 08/22/24 14:18 Blood Pressure 145/85 H 08/22/24 14:18 Pulse Oximetry 99 08/22/24 14:18 Oxygen Delivery Room Air 08/22/24 14:18 reviewed Medical Decision Making MDM Narrative Medical decision making narrative: L tonsillar lymph node enlarge without tenderness. No fluctuance or erythema concerning for abscess. Pt no longer having dental pain. Will treat with abx due to recent dental pain and lymphadenopathy. rePatient is aware of diagnosis, understands and agrees to treatment plan. Anticipatory guidance given. Patient agrees to follow-up as directed and is aware of reasons to seek care at the emergency department. Portions of this record may have been created with voice recognition software commend follow up with PCP for outpatient imaging if swelling does not improve. Vital Signs Vital Signs: Vital Signs Temperature 36.6 C 08/22/24 14:18 Pulse Rate 73 08/22/24 14:18 Respiratory Rate 18 08/22/24 14:18 Blood Pressure 145/85 H 08/22/24 14:18 Pulse Oximetry 99 08/22/24 14:18 Oxygen Delivery Room Air 08/22/24 14:18 Temperature 36.6 C 08/22/24 14:18 Pulse Rate 73 08/22/24 14:18 Respiratory Rate 18 08/22/24 14:18 Blood Pressure 145/85 H 08/22/24 14:18 Pulse Oximetry 99 08/22/24 14:18 Oxygen Delivery Room Air 08/22/24 14:18 Discharge Plan Discharge Clinical Impression: Pain, dental, Lymphadenopathy of head and neck region Patient Disposition: Home, Self-Care Condition: Stable Instructions: Antibiotic Form, Lymphadenopathy (ED), Toothache (ED) Additional Instructions: take antibiotic as prescribed until gone. Continue taking ibuprofen every 6-8 hours as needed for pain. If pain and swelling is not improving, follow-up with your primary care physician for further evaluation. Prescriptions: New amoxicillin 875 mg tablet 875 mg PO Q12H 10 Days Qty: 20 0RF No Action multivitamin with minerals [Hair,Skin and Nails] Tablet 1 tablet PO DAILY ejcwyomv-[id number]-[id number]-oreg-capry 100 mg-150 mg- 50 mg-150 mg capsule 1 cap PO DAILY metoprolol succinate 25 mg tablet extended release 24 hr 25 mg PO DAILY Qty: 90 2RF rosuvastatin 5 mg tablet 5 mg PO DAILY Qty: 90 1RF Follow-up/Referrals: Jose Carrillo DO [Primary Care Provider] - Time of Disposition: 14:39
== END 2024-08-22 14:46 | disposition home or self-care (01) ==
PROVIDERS: Emergency Provider Nurse Practitioner Family; PCP Family Medicine
DX: K08.89 Other specified disorders of teeth and supporting structures (principal); R59.0 Localized enlarged lymph nodes; Z87.891 Personal history of nicotine dependence; I10 Essential (primary) hypertension; Z85.9 Personal history of malignant neoplasm, unspecified
CPT/HCPCS: 99213; G0463

== ENCOUNTER 2025-06-11 11:05 | Emergency (ER) | payer OTHER, SELFPAY ==
--- OUTSIDE RECORDS SUMMARY | 2025-04-25 08:41 | XMS_ITS | Encounter Summary ---
Author Name [facility] [place] [facility] Address [address] [place] [address] Care Team Providers Care Contact Lens Manufacturer Name Role Phone TOÑO BERRY Primary Care Provider Unavailabl e Insurance Providers: All historical and current Section Date Range: From patient's date of to the date document was created. This section includes the names of all active insurance providers for the patient. Insurance Provider Type of Coverage Plan Name Start of Policy Coverage End of Policy Coverage Group Number Member ID Insurance Provider's Telephone Number Policy Maguire's Name Patient's Relationship to Policy Maguire [employer] [facility] (WNR) MEDICARE ADVANTAGE [facility] (WNR) Jun 10, 2021 [id number] [phone] LENNY LOPEZ PATIENT Selected Encounter This section includes the information on record at [place] for the Encounter. Date/Time Encounter Type Encounter Description Reason Pro vider Source Apr 25, 2025 01:41 PM Outpatient Encounter ADMIN PAT ACTIVTIES (MASNONCT) IHE Encounter Template Text not used by [place] Plan of Treatment: Future Appointments (+ 6 months) and Future Tests (+/- 45 days) The Plan of Treatment section includes future care activities for the patient from all [facility] treatment[facility]ilities. This section includes future appointments and future orders which are active, pending or scheduled. Future Appointments This section includes appointments that were scheduled to occur 6 months from the date of the Encounter, up to a maximum of 20 appointments. The data comes from all [place] treatment facilities. Appointment Date/Time Appointment Type Appointme nt Facility Name May 17, 2025 10:00 AM AMBULATORY - MEDICINE [facility] May 22, 2025 09:00 AM AMBULATORY - MEDICINE [facility] May 27, 2025 03:00 PM AMBULATORY - MEDICINE [facility] Jun 04, 2025 08:30 AM AMBULATORY - NONE [facility] Lab Results: +/- 30 days of the encounter This section includes the Chemistry and Hematology Lab Results on record with [place] for the patient. Radiology Reports and Pathology Reports are provided separately, in subsequent sections. Lab Results This section contains the Chemistry/Hematology Results that were resulted 30 days before or 30 daysafter the date of the Encounter. Date/Time Source Result Type Result - Unit Interpretation Reference Range Specimen Type Comment May 22, 2025 09:53 AM [facility] COMPREHENSIVE METABOLIC PANEL PLASMA Specimen Type: PLASMA Comment: No hemolysis noted. Ordering Provider: TOÑO BERRY Report Released Date/Time: May 22, 2025 09:43 AM Reporting Lab: [facility] [address] [facility] [phone] Performing Lab: [facility] [address] [facility] [address] CREATININE 0.92 mg/dL 0.7-1.3 UREA NITROGEN 14.8 mg/dL 9.0-25.0 GLUCOSE 98 mg/dL 72-99 SODIUM 140 meq/L 136-145 POTASSIUM 4.7 meq/L 3.5-5 CHLORIDE 106 meq/L 98-107 CARBON DIOXIDE 27 meq/L 22-31 CALCIUM 9.7 mg/dL 8.4-10.4 PROTEIN 7.1 g/dL 6-8.6 ALBUMIN 4.3 g/dL 3.4-5 TOTAL BILIRUBIN 1.2 mg/dL 0.2-1.2 ALKALINE PHOSPHATASE 53 U/L 40-150 AST/SGOT 32 U/L 5-34 ALT/SGPT 20 U/L 8-40 EGFR (CKD-EPI 2020) 90.6 >60 May 22, 2025 09:53 AM [facility] LIPID PANEL (STL) PLASMA Specimen Type: PLASM A Comment: No hemolysis noted. Ordering Provider: TOÑO BERRY Report Released Date/Time: May 22, 2025 09:43 AM Reporting Lab: [address] [phone] Performing Lab: [address] [address] CHOLESTEROL 143 mg/dL 0-200 TRIGLYCERIDE 76 mg/dL 0-150 CALCULATED LDL 74 mg/dL HDL(New) 54 mg/dL >40 May 22, 2025 09:53 AM [facility] CBC BLOOD Specimen Type: BLOOD No comment entered. Ordering Provider: TOÑO BERRY Report Released Date/Time: May 22, 2025 09:43 AM Reporting Lab: [address] [phone] Performing Lab: [address] [phone] WBC 5.5 10*3/uL 3.6-11.2 RBC 5.16 10*6/uL 4.10-5.70 HGB 15.3 g/dL 13.1-16.8 HCT 46.3 38.2-48.4 MCV 89.7 fL 80.0-100.0 MCH 29.7 pg 27.0-34.0 MCHC 33.0 g/dL 33.0-36.0 PLT 195 10*3/uL 150-400 MPV 11.5 fL H 7.5-11.2 RDW 12.2 11.8-15.1 LYMPHOCYTES, AUTO % 28 MONOCYTES, AUTO % 10 NEUTROPHILS, AUTO % 59 EOSINOPHILS, AUTO % 1 BASOPHILS, AUTO % 1 LYMPHOCYTES, ABSOLUTE 1.54 10*3/uL 0.77- 4.50 MONOCYTES, ABSOLUTE 0.57 10*3/uL 0.19-0. 80 NEUTROPHILS, ABSOLUTE 3.22 10*3/uL 2.10- 8.00 EOSINOPHILS, ABSOLUTE 0.06 10*3/uL 0.00- 0.60 BASOPHILS, ABSOLUTE 0.05 10*3/uL 0.00-0. 20 May 22, 2025 09:53 AM [facility] HGA1C BLOOD Specimen Type: BLOOD No comment entered. Ordering Provider: TOÑO BERRY Report Released Date/Time: May 22, 2025 09:43 AM Reporting Lab: [place] [id number] Performing Lab: [facility] [address] [facility] [address] HGA1C 5.1 4.0-6.0 May 22, 2025 09:53 AM [facility] VITAMIN D, 25-HYDROXY SERUM Specimen Type: SE RUM Comment: The listed sex of this patient may not be a typical indication for this test. Therefore, reference ranges or interpretive criteria listed may not be valid. Clinical correlation suggested. Ordering Provider: TOÑO BERRY Report Released Date/Time: May 22, 2025 09:43 AM Reporting Lab: [facility] [address] [facility] [phone] Performing Lab: [place] [phone] VITAMIN D, 25-HYDROXY 42.7 ng/mL 30-96 May 22, 2025 09:53 AM [facility] TSH W/ REFLEX FT4 (STL) PLASMA Specimen Type: PLASMA No comment entered. Ordering Provider: TOÑO BERRY Report Released Date/Time: May 22, 2025 09:43 AM Reporting Lab: [facility] [address] [place] [phone] Performing Lab: [address] [address] TSH 1.451 u[IU]/mL 0.47-5 May 22, 2025 09:53 AM [facility] PROST. SPECIFIC AG.(PB-STL) SERUM Specimen Ty pe: SERUM Comment: The listed sex of this patient may not be a typical indication for this test. Therefore, reference ranges or interpretive criteria listed may not be valid. Clinical correlation suggested. Ordering Provider: TOÑO BERRY Report Released Date/Time: May 22, 2025 09:43 AM Reporting Lab: [facility] [address] [place] [phone] Performing Lab: [address] [phone] PROST. SPECIFIC AG.(PB-STL) 0.966 ng/mL 0-4 Encounter Notes: All associated encounter notes This section contains the clinical notes associated to the Encounter. Date/Time Encounter Note(s) Provider Source Apr 25, 2025 01:41 PM [facility]IMARY [facility] RS: LOCAL TITLE: PC NEW PATIENT NO CONTACT LETTER ST STANDARD TITLE: PRIMARY CARE LETTERS DATE OF NOTE: APR 25, 2025@13:41 ENTRY DATE: APR 25, 2025@13:41:47 AUTHOR: GURPREET ENRIQUEZ EXP COSIGNER: URGENCY: STATUS: COMPLETED [facility] [address] [place] [address] APR 25, 2025 LENNY LOPEZ [address] [place], [place] [address] Dear Lenny Lopez, Thank you for your interest in establishing care with a Primary Care Provider at the [facility]. Your Primary Care Provider is the clinical leader of your Patient Aligned Care Team (PACT). Your PACT Team manages and coordinates your comprehensive health care services. Primary Care includes, but is not limited to: diagnosis and management of acute and chronic health conditions, health promotion, disease prevention, overall care management, post-deployment care, and patient and caregiver education. If you would like more information, please visit [email or web address] We have been unsuccessful in our attempts to contact you to schedule your initial appointment. Based on your current residence, the clinic recommended for your primary care needs is: [facility] [address] [place] [id number] We are happy to accommodate your request with another clinic, if needed. Please call to schedule your initial appointment. Thank you for your service, and we look forward to hearing from you. Sincerely, GURPREET ENRIQUEZ LEAD [employer] SOFTWARE DEVELOPER LENNY LOPEZ [facility]
--- OUTSIDE RECORDS SUMMARY | 2025-06-11 06:38 | XMS_ITS | Continuity of Care Document ---
Author Name [facility] Organization 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 Unavailable Unavailable Problems Combined list of problems from [facility] and [facility] facilities. It does not include entries that were removed or entered in error. Problem Status Onset Date Problem Type Date of Resolution Comments Source Benign prostatic hyperplasia Active Condition [facility] Carcinoma of colon Active Condition [facility] Carpal tunnel syndrome of right wrist Active Condition [facility] History of repair of right inguinal hernia using robotic assistance Active Condition [facility] HTN - Hypertension ([facility] [id number]) Active Condition [facility] Hyperglycemia Active Condition [facility] Hyperlipidemia ([facility] [id number]) Active Condition [facility] Diagnosis: ICD-10-CM Z71.3 Dietary counseling and surveillance Active Diagnosis [facility] Diagnosis: ICD-10-CM Z02.9 Encounter for administrative examinations, unspecified Active Diagnosis [facility] Diagnosis: ICD-10-CM R73.9 Hyperglycemia, unspecified Active Diagnosis [facility] Medications Combined list of outpatient medications from [facility] facilities.Medications provided include 1) outpatient medications from the last 15 months, and 2) patient-reported medications. Medication Details Route Status Patient Instructions Prescription Expires Prescription Number Last Dispense Date Ordering Provider Order Date Order Qty Source METOPROLOL SUCCINATE 25MG TAB,SA TAKE ONE-HALF TABLET BY MOUTH ONCE A DAY ORAL ACTIVE TOÑO BERRY 2024 [facility] ROSUVASTATI N TAB TAKE BY MOUTH EVERY EVENING ORAL ACTIVE TOÑO BERRY 2024 [facility] Immunizations Combined list of available immunizations from the [facility] and [facility] facilities. Immunization Series Date Given Administered By Site Reaction Lot Number CVX Code Drug Clinical Radiologist Status Comments Source INFLUENZA, UNSPECIFIED FORMULATION 2023 88 complet ed HISTORICA L INFORMATI ON - FROM OTHER PROVIDER, [facility] PNEUMOCOCCAL CONJUGATE PCV20, POLYSACCHARID E [id number] CONJUGATE, ADJUVANT, PF 2022 216 complet ed HISTORICA L INFORMATI ON - FROM OTHER PROVIDER, Lot#: [id number] [facility] TDAP 2022 115 complet ed HISTORICA L INFORMATI ON - FROM OTHER PROVIDER, Lot#: [id number] Mfr: SANOFI EVANS [facility] COVID-19 (PFIZER), MRNA, LNP-S, PF, 30 MCG/0.3 ML DOSE 2 2020 208 complet ed HISTORICA L INFORMATI ON - FROM OTHER REGISTRY, [facility] COVID-19 (PFIZER), MRNA, LNP-S, PF, 30 MCG/0.3 ML DOSE 1 2020 208 complet ed HISTORICA L INFORMATI ON - FROM OTHER REGISTRY, [facility] INFLUENZA, SPLIT VIRUS, QUADRIVALENT, PF 1 2019 150 complet ed HISTORICA L INFORMATI ON - FROM OTHER REGISTRY, [facility] ZOSTER RECOMBINANT 2 2019 187 complet ed HISTORICA L INFORMATI ON - FROM OTHER PROVIDER, [facility] ZOSTER RECOMBINANT 1 2019 187 complet ed HISTORICA L INFORMATI ON - FROM OTHER PROVIDER, [facility] Results Combined list of recent chemistry, hematology and other laboratory results from Department of Defense and Veterans Affairs, ranging from 15 months to all on record, depending upon the facility. Order Name Results Value Reference Range Date Interpretation Specimen Comments Source COMPREHENS TRIP METABOLIC PANEL CREATININE [MASS/VOLUM E] IN SERUM OR PLASMA 0.92 mg/dL 0.7 - 1.3 05/22 Specimen Type: PLASMA Comment: No hemolysis noted. Ordering Provider: OTIS BERRY Report Released Date/Time: May 22, 2025 09:43 AM Reporting Lab: [facility] [address] [facility] [address] Performing Lab: [facility] [address] [facility] [address] [facility] COMPREHENS TRIP METABOLIC PANEL UREA NITROGEN [MASS/VOLUM E] IN SERUM OR PLASMA 14.8 mg/dL 9.0 - 25.0 05/22 Specimen Type: PLASMA Comment: No hemolysis noted. Ordering Provider: OTIS BERRY Report Released Date/Time: May 22, 2025 09:43 AM Reporting Lab: [address] [address] Performing Lab: [facility] [address] [place] [phone] [facility] COMPREHENS TRIP METABOLIC PANEL GLUCOSE [MASS/VOLUM E] IN SERUM OR PLASMA 98 mg/dL 72 - 99 05/22 Specimen Type: PLASMA Comment: No hemolysis noted. Ordering Provider: OTIS BERRY Report Released Date/Time: May 22, 2025 09:43 AM Reporting Lab: [address] [address] Performing Lab: [facility] [address] [place] [phone] [facility] COMPREHENS TRIP METABOLIC PANEL SODIUM [MOLES/VOLU ME] IN SERUM OR PLASMA 140 meq/L 136 - 145 05/22 Specimen Type: PLASMA Comment: No hemolysis noted. Ordering Provider: OTIS BERRY Report Released Date/Time: May 22, 2025 09:43 AM Reporting Lab: [facility] [address] [place] [phone] Performing Lab: [facility] [address] [place] [phone] [facility] COMPREHENS TRIP METABOLIC PANEL POTASSIUM [MOLES/VOLU ME] IN SERUM OR PLASMA 4.7 meq/L 3.5 - 5 05/22 Specimen Type: PLASMA Comment: No hemolysis noted. Ordering Provider: OTIS BERRY Report Released Date/Time: May 22, 2025 09:43 AM Reporting Lab: [address] [phone] Performing Lab: [facility] [address] [facility] COMPREHENS TRIP METABOLIC PANEL CHLORIDE [MOLES/VOLU ME] IN SERUM OR PLASMA 106 meq/L 98 - 107 05/22 Specimen Type: PLASMA Comment: No hemolysis noted. Ordering Provider: OTIS BERRY Report Released Date/Time: May 22, 2025 09:43 AM Reporting Lab: [address] [address] Performing Lab: [place] [address] [facility] [address] [facility] COMPREHENS TRIP METABOLIC PANEL CARBON DIOXIDE, TOTAL [MOLES/VOLU ME] IN SERUM OR PLASMA 27 meq/L 22 - 31 05/22 Specimen Type: PLASMA Comment: No hemolysis noted. Ordering Provider: OTIS BERRY Report Released Date/Time: May 22, 2025 09:43 AM Reporting Lab: [address] [address] Performing Lab: [address] [address] [facility] COMPREHENS TRIP METABOLIC PANEL CALCIUM [MASS/VOLUM E] IN SERUM OR PLASMA 9.7 mg/dL 8.4 - 10.4 05/22 Specimen Type: PLASMA Comment: No hemolysis noted. Ordering Provider: OTIS BERRY Report Released Date/Time: May 22, 2025 09:43 AM Reporting Lab: [place] [address] [facility] [address] Performing Lab: [address] [address] [facility] COMPREHENS TRIP METABOLIC PANEL PROTEIN [MASS/VOLUM E] IN SERUM OR PLASMA 7.1 g/dL 6 - 8.6 05/22 Specimen Type: PLASMA Comment: No hemolysis noted. Ordering Provider: OTIS BERRY Report Released Date/Time: May 22, 2025 09:43 AM Reporting Lab: [address] [address] Performing Lab: [facility] [address] [place] [address] [facility] COMPREHENS TRIP METABOLIC PANEL ALBUMIN [MASS/VOLUM E] IN SERUM OR PLASMA 4.3 g/dL 3.4 - 5 05/22 Specimen Type: PLASMA Comment: No hemolysis noted. Ordering Provider: OTIS BERRY Report Released Date/Time: May 22, 2025 09:43 AM Reporting Lab: [place] [address] [facility] [place] [address] Performing Lab: [place] [address] [place] [address] [facility] COMPREHENS TRIP METABOLIC PANEL BILIRUBIN.T OTAL [MASS/VOLUM E] IN SERUM OR PLASMA 1.2 mg/dL 0.2 - 1.2 05/22 Specimen Type: PLASMA Comment: No hemolysis noted. Ordering Provider: OTIS BERRY Report Released Date/Time: May 22, 2025 09:43 AM Reporting Lab: [facility] [address] [place] [phone] Performing Lab: [address] [address] [facility] COMPREHENS TRIP METABOLIC PANEL ALKALINE PHOSPHATASE [ENZYMATIC ACTIVITY/VO LUME] IN SERUM OR PLASMA 53 U/L 40 - 150 05/22 Specimen Type: PLASMA Comment: No hemolysis noted. Ordering Provider: OTIS BERRY Report Released Date/Time: May 22, 2025 09:43 AM Reporting Lab: [facility] [address] [place] [phone] Performing Lab: [facility] [place] [address] [facility] COMPREHENS TRIP METABOLIC PANEL ASPARTATE AMINOTRANSF ERASE [ENZYMATIC ACTIVITY/VO LUME] IN SERUM OR PLASMA 32 U/L 5 - 34 05/22 Specimen Type: PLASMA Comment: No hemolysis noted. Ordering Provider: OTIS BERRY Report Released Date/Time: May 22, 2025 09:43 AM Reporting Lab: [address] [place] [address] Performing Lab: [facility] [place] [address] [facility] COMPREHENS TRIP METABOLIC PANEL ALANINE AMINOTRANSF ERASE [ENZYMATIC ACTIVITY/VO LUME] IN SERUM OR PLASMA 20 U/L 8 - 40 05/22 Specimen Type: PLASMA Comment: No hemolysis noted. Ordering Provider: OTIS BERRY Report Released Date/Time: May 22, 2025 09:43 AM Reporting Lab: [address] [address] Performing Lab: [phone] [place] [address] COMPREHENS TRIP METABOLIC PANEL GLOMERULAR FILTRATION RATE/1.73 SQ M.PREDICTED [VOLUME RATE/AREA] IN SERUM, PLASMA OR BLOOD BY CREATININE- BASED FORMULA (CKD-EPI 2020) 90.6 60 05/22 Specimen Type: PLASMA Comment: No hemolysis noted. Ordering Provider: OTIS BERRY Report Released Date/Time: May 22, 2025 09:43 AM Reporting Lab: [facility] [address] [place] [phone] Performing Lab: [address] [address] [facility] LIPID PANEL (STL) CHOLESTEROL [MASS/VOLUM E] IN SERUM OR PLASMA 143 mg/dL 0 - 200 05/22 Specimen Type: PLASMA Comment: No hemolysis noted. Ordering Provider: OTIS BERRY Report Released Date/Time: May 22, 2025 09:43 AM Reporting Lab: [facility] [address] [place] [phone] Performing Lab: [address] [address] [facility] LIPID PANEL (STL) TRIGLYCERID E [MASS/VOLUM E] IN SERUM OR PLASMA 76 mg/dL 0 - 150 05/22 Specimen Type: PLASMA Comment: No hemolysis noted. Ordering Provider: OTIS BERRY Report Released Date/Time: May 22, 2025 09:43 AM Reporting Lab: [facility] [address] [place] [phone] Performing Lab: [facility] [address] [place] [phone] [facility] LIPID PANEL (STL) CHOLESTEROL IN LDL [MASS/VOLUM E] IN SERUM OR PLASMA BY CALCULATION 74 mg/dL 05/22 Specimen Type: PLASMA Comment: No hemolysis noted. Ordering Provider: OTIS BERRY Report Released Date/Time: May 22, 2025 09:43 AM Reporting Lab: [address] [address] Performing Lab: [address] [address] [facility] LIPID PANEL (L) CHOLESTEROL IN HDL [MASS/VOLUM E] IN SERUM OR PLASMA 54 mg/dL 40 05/22 Specimen Type: PLASMA Comment: No hemolysis noted. Ordering Provider: OTIS BERRY Report Released Date/Time: May 22, 2025 09:43 AM Reporting Lab: [place] [address] [facility] [address] Performing Lab: [facility] [address] [place] [phone] [facility] CBC LEUKOCYTES [#/VOLUME] IN BLOOD BY AUTOMATED COUNT 5.5 10*3/u L 3.6 - 11.2 05/22 Specimen Type: BLOOD No comment entered. Ordering Provider: OTIS BERRY Report Released Date/Time: May 22, 2025 09:43 AM Reporting Lab: [facility] [address] [place] [phone] Performing Lab: [address] [address] [facility] CBC ERYTHROCYTE S [#/VOLUME] IN BLOOD BY AUTOMATED COUNT 5.16 10*6/u L 4.10 - 5.70 05/22 Specimen Type: BLOOD No comment entered. Ordering Provider: OTIS BERRY Report Released Date/Time: May 22, 2025 09:43 AM Reporting Lab: [facility] [place] [address] Performing Lab: [address] [address] [facility] CBC HEMOGLOBIN [MASS/VOLUM E] IN BLOOD 15.3 g/dL 13.1 - 16.8 05/22 Specimen Type: BLOOD No comment entered. Ordering Provider: OTIS BERRY Report Released Date/Time: May 22, 2025 09:43 AM Reporting Lab: [place] [address] [facility] [place] [address] Performing Lab: [address] [address] [facility] CBC HEMATOCRIT [VOLUME FRACTION] OF BLOOD 46.3 38.2 - 48.4 05/22 Specimen Type: BLOOD No comment entered. Ordering Provider: OTIS BERRY Report Released Date/Time: May 22, 2025 09:43 AM Reporting Lab: [place] [address] [facility] [place] [address] Performing Lab: [address] [address] [facility] CBC MCV [ENTITIC VOLUME] BY AUTOMATED COUNT 89.7 fL 80.0 - 100.0 05/22 Specimen Type: BLOOD No comment entered. Ordering Provider: OTIS BERRY Report Released Date/Time: May 22, 2025 09:43 AM Reporting Lab: [place] [address] [facility] [place] [address] Performing Lab: [address] [address] [facility] CBC MCH [ENTITIC MASS] BY AUTOMATED COUNT 29.7 pg 27.0 - 34.0 05/22 Specimen Type: BLOOD No comment entered. Ordering Provider: OTIS BERRY Report Released Date/Time: May 22, 2025 09:43 AM Reporting Lab: [place] [address] [facility] [place] [address] Performing Lab: [facility] [address] [place] [address] [facility] CBC MCHC [MASS/VOLUM E] BY AUTOMATED COUNT 33.0 g/dL 33.0 - 36.0 05/22 Specimen Type: BLOOD No comment entered. Ordering Provider: OTIS BERRY Report Released Date/Time: May 22, 2025 09:43 AM Reporting Lab: [facility] [address] [place] [address] Performing Lab: [facility] [address] [facility] [place] [address] [facility] CBC PLATELETS [#/VOLUME] IN BLOOD BY AUTOMATED COUNT 195 10*3/u L 150 - 400 05/22 Specimen Type: BLOOD No comment entered. Ordering Provider: OTIS BERRY Report Released Date/Time: May 22, 2025 09:43 AM Reporting Lab: [facility] [place] [address] Performing Lab: [facility] [address] [place] [address] [facility] CBC PLATELET MEAN VOLUME [ENTITIC VOLUME] IN BLOOD BY AUTOMATED COUNT 11.5 fL 7.5 - 11.2 05/22 H Specimen Type: BLOOD No comment entered. Ordering Provider: OTIS BERRY Report Released Date/Time: May 22, 2025 09:43 AM Reporting Lab: [facility] [place] [address] Performing Lab: [facility] [address] [place] [phone] [facility] CBC ERYTHROCYTE DISTRIBUTIO N WIDTH [RATIO] BY AUTOMATED COUNT 12.2 11.8 - 15.1 05/22 Specimen Type: BLOOD No comment entered. Ordering Provider: OTIS BERRY Report Released Date/Time: May 22, 2025 09:43 AM Reporting Lab: [facility] [place] [address] Performing Lab: [place] [address] [facility] [address] [facility] CBC LYMPHOCYTES /100 LEUKOCYTES IN BLOOD BY AUTOMATED COUNT 28 05/22 Specimen Type: BLOOD No comment entered. Ordering Provider: OTIS BERRY Report Released Date/Time: May 22, 2025 09:43 AM Reporting Lab: [facility] [address] [facility] [place] [address] Performing Lab: [facility] [address] [place] [address] [facility] CBC MONOCYTES/1 00 LEUKOCYTES IN BLOOD BY AUTOMATED COUNT 10 05/22 Specimen Type: BLOOD No comment entered. Ordering Provider: OTIS BERRY Report Released Date/Time: May 22, 2025 09:43 AM Reporting Lab: [facility] [address] [place] [place] [address] Performing Lab: [facility] [address] [place] [address] [facility] CBC NEUTROPHILS /100 LEUKOCYTES IN BLOOD BY AUTOMATED COUNT 59 05/22 Specimen Type: BLOOD No comment entered. Ordering Provider: OTIS BERRY Report Released Date/Time: May 22, 2025 09:43 AM Reporting Lab: [facility] [address] [place] [address] Performing Lab: [facility] [address] [place] [address] [facility] CBC EOSINOPHILS /100 LEUKOCYTES IN BLOOD BY AUTOMATED COUNT 1 05/22 Specimen Type: BLOOD No comment entered. Ordering Provider: OTIS BERRY Report Released Date/Time: May 22, 2025 09:43 AM Reporting Lab: [facility] [address] [place] [place] [address] Performing Lab: [facility] [address] [place] [phone] [facility] CBC BASOPHILS/1 00 LEUKOCYTES IN BLOOD BY AUTOMATED COUNT 1 05/22 Specimen Type: BLOOD No comment entered. Ordering Provider: OTIS BERRY Report Released Date/Time: May 22, 2025 09:43 AM Reporting Lab: [facility] [address] [place] [phone] Performing Lab: [facility] [address] [place] [phone] [facility] CBC LYMPHOCYTES [#/VOLUME] IN BLOOD BY AUTOMATED COUNT 1.54 10*3/u L 0.77 - 4.50 05/22 Specimen Type: BLOOD No comment entered. Ordering Provider: OTIS BERRY Report Released Date/Time: May 22, 2025 09:43 AM Reporting Lab: [facility] [address] [place] [phone] Performing Lab: [address] [phone] [place] [address] CBC MONOCYTES [#/VOLUME] IN BLOOD BY AUTOMATED COUNT 0.57 10*3/u L 0.19 - 0.80 05/22 Specimen Type: BLOOD No comment entered. Ordering Provider: OTIS BERRY Report Released Date/Time: May 22, 2025 09:43 AM Reporting Lab: [facility] [address] [place] [phone] Performing Lab: [facility] [address] [place] [phone] [facility] CBC NEUTROPHILS [#/VOLUME] IN BLOOD BY AUTOMATED COUNT 3.22 10*3/u L 2.10 - 8.00 05/22 Specimen Type: BLOOD No comment entered. Ordering Provider: OTIS BERRY Report Released Date/Time: May 22, 2025 09:43 AM Reporting Lab: [facility] [address] [place] [phone] Performing Lab: [address] [address] [facility] CBC EOSINOPHILS [#/VOLUME] IN BLOOD BY AUTOMATED COUNT 0.06 10*3/u L 0.00 - 0.60 05/22 Specimen Type: BLOOD No comment entered. Ordering Provider: OTIS BERRY Report Released Date/Time: May 22, 2025 09:43 AM Reporting Lab: [facility] [address] [place] [phone] Performing Lab: [address] [address] [facility] CBC BASOPHILS [#/VOLUME] IN BLOOD BY AUTOMATED COUNT 0.05 10*3/u L 0.00 - 0.20 05/22 Specimen Type: BLOOD No comment entered. Ordering Provider: OTIS BERRY Report Released Date/Time: May 22, 2025 09:43 AM Reporting Lab: [facility] [address] [place] [phone] Performing Lab: [address] [phone] [place] [address] HGA1C HEMOGLOBIN A1C/HEMOGLO BIN.TOTAL IN BLOOD 5.1 4.0 - 6.0 05/22 Specimen Type: BLOOD No comment entered. Ordering Provider: OTIS BERRY Report Released Date/Time: May 22, 2025 09:43 AM Reporting Lab: [facility] [address] [place] [phone] Performing Lab: [address] [phone] [place] [address] VITAMIN D, 25-HYDROXY 25-HYDROXYV ITAMIN D3 [MASS/VOLUM E] IN SERUM OR PLASMA 42.7 ng/mL 30 - 96 05/22 Specimen Type: SERUM Comment: The listed sex of this patient may not be a typical indication for this test. Therefore, reference ranges or interpretive criteria listed may not be valid. Clinical correlation suggested. Ordering Provider: OTIS BERRY Report Released Date/Time: May 22, 2025 09:43 AM Reporting Lab: [facility] [address] [place] [phone] Performing Lab: [address] [address] [facility] TSH W/ REFLEX FT4 (STL) THYROTROPIN [UNITS/VOLU ME] IN SERUM OR PLASMA 1.451 u[IU]/ mL 0.47 - 5 05/22 Specimen Type: PLASMA No comment entered. Ordering Provider: OTIS BERRY Report Released Date/Time: May 22, 2025 09:43 AM Reporting Lab: [facility] [address] [place] [address] Performing Lab: [place] [address] [place] [address] [facility] PROST. SPECIFIC AG.(PB-STL ) PROSTATE SPECIFIC AG [MASS/VOLUM E] IN SERUM OR PLASMA 0.966 ng/mL 0 - 4 05/22 Specimen Type: SERUM Comment: The listed sex of this patient may not be a typical indication for this test. Therefore, reference ranges or interpretive criteria listed may not be valid. Clinical correlation suggested. Ordering Provider: OTIS BERRY Report Released Date/Time: May 22, 2025 09:43 AM Reporting Lab: [facility] [address] [place] [address] Performing Lab: [place] [address] [place] [address] [facility] Vital Signs Combined list of inpatient and outpatient Vital Signs from Department of Defense and Veterans Affairs, ranging from 12 months to all on record, depending upon the facility. Vital Sign Value Date Comments Source SYSTOLIC BLOOD PRESSURE 161 05/22/2025 09:17:55 [facility] DIASTOLIC BLOOD PRESSURE 89 05/22/2025 09:17:55 [facility] PULSE OXIMETRY 98 % 05/22/2025 09:17:55 [facility] WEIGHT 186.8 05/22/2025 09:17:55 [facility] BMI 28 kg/m2 05/22/2025 09:17:55 [facility] PAIN 0 05/22/2025 09:17:55 [facility] HEIGHT 68 05/22/2025 09:17:55 [facility] PULSE 68 05/22/2025 09:17:55 [facility] RESPIRATION 16 05/22/2025 09:17:55 [facility] Encounters Combined list of: 1) Encounters from Department of Veterans Affairs facilities going backup to the last 18 months, not all [place] inpatient encounters are included; 2) Encounters from the Department of Defense facilities going backup to 280 months. Location Location Details Encounter Type Encounter Number Reason For Visit Attending Provider ADM Date DC Date Status Disposition Source [facility] Outpatient Encounter [id number] 01/25 [facility] Outpatient Encounter [id number] 02/11 [facility] Outpatient Encounter [id number] 04/19 [facility] Outpatient Encounter [id number] 04/25 [facility] Outpatient Encounter [id number] 05/17 [facility] PH1 ASSMT&MGMT NQHP 21-30 [id number] Diagnos is: ICD-10- CM Z02.9 Encount er for adminis trative examina tions, unspeci fied GUANAKO GONZALEZ A 05/17 [facility] Outpatient Encounter [id number] 05/20 [facility] Outpatient Encounter [id number] 05/21 [facility] Outpatient Encounter [id number] 05/22 [facility] OFFICE O/P NEW MOD 45 MIN [id number] Diagnos is: ICD-10- CM R73.9 Hypergl ycemia, unspeci fied KRISTI,T ODD 05/22 [facility] PH1 ASSMT&MGMT NQHP 11-20 [id number] Diagnos is: ICD-10- CM Z02.9 Encount er for adminis trative examina tions, unspeci fied PALLONE,JE NNIFER A 05/27 [facility] Outpatient Encounter [id number] BERRY,T ODD 05/28 [facility] Outpatient Encounter [id number] 05/29 [facility] [place] [address] ASSMT&MGMT NQHP 21-30 [id number] [id number] Diagnos is: ICD-10- CM 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 Social History Type Response Date Comment Patc rosaura Tobacco smoking status NHIS VA-TOBACCO USE FORMER CIGARETTES 05/17/2025 [facility] History of tobacco use PR-TOBACCO NEVER USED OTHER TYPE 05/17/2025 [facility]
--- OUTSIDE RECORDS SUMMARY | 2025-06-11 06:38 | XMS_ITS | Continuity of Care Document ---
Author Name [facility] Organization [facility] Care Team Providers Care Drag Down Name Role Phone [facility] Unavailable Unavailable Problems Combined list of problems from [facility] and [facility] facilities. It does not include entries that were removed or entered in error. Problem Status Onset Date Problem Type Date of Resolution Comments Source Benign prostatic hyperplasia Active Condition [facility] Carcinoma of colon Active Condition [facility] Carpal tunnel syndrome of right wrist Active Condition [facility] History of repair of right inguinal hernia using robotic assistance Active Condition [facility] HTN - Hypertension ([facility] [id number]) Active Condition [facility] Hyperglycemia Active Condition [facility] Hyperlipidemia ([facility] [id number]) Active Condition [facility] Diagnosis: ICD-10-CM Z71.3 Dietary counseling and surveillance Active Diagnosis [facility] Diagnosis: ICD-10-CM Z02.9 Encounter for administrative examinations, unspecified Active Diagnosis [facility] Diagnosis: ICD-10-CM R73.9 Hyperglycemia, unspecified Active Diagnosis [facility] Medications Combined list of outpatient medications from [facility] facilities.Medications provided include 1) outpatient medications from the last 15 months, and 2) patient-reported medications. Medication Details Route Status Patient Instructions Prescription Expires Prescription Number Last Dispense Date Ordering Provider Order Date Order Qty Source METOPROLOL SUCCINATE 25MG TAB,SA TAKE ONE-HALF TABLET BY MOUTH ONCE A DAY ORAL ACTIVE TOÑO BERRY 2024 [facility] ROSUVASTATI N TAB TAKE BY MOUTH EVERY EVENING ORAL ACTIVE TOÑO BERRY 2024 [facility] Immunizations Combined list of available immunizations from the [facility] and [facility] facilities. Immunization Series Date Given Administered By Site Reaction Lot Number CVX Code Drug Destination Specialist Status Comments Source INFLUENZA, UNSPECIFIED FORMULATION 2023 88 complet ed HISTORICA L INFORMATI ON - FROM OTHER PROVIDER, [facility] PNEUMOCOCCAL CONJUGATE PCV20, POLYSACCHARID E [id number] CONJUGATE, ADJUVANT, PF 2022 216 complet ed HISTORICA L INFORMATI ON - FROM OTHER PROVIDER, Lot#: [id number] [facility] TDAP 2022 115 complet ed HISTORICA L INFORMATI ON - FROM OTHER PROVIDER, Lot#: [id number] Mfr: SANAMY KRUEGER [facility] COVID-19 (PFIZER), MRNA, LNP-S, PF, 30 MCG/0.3 ML DOSE 2 2020 208 complet ed HISTORICA L INFORMATI ON - FROM OTHER REGISTRY, [facility] COVID-19 (PFIZER), MRNA, LNP-S, PF, 30 MCG/0.3 ML DOSE 1 2020 208 complet ed HISTORICA L INFORMATI ON - FROM OTHER REGISTRY, [facility] INFLUENZA, SPLIT VIRUS, QUADRIVALENT, PF 1 2019 150 complet ed HISTORICA L INFORMATI ON - FROM OTHER REGISTRY, [facility] ZOSTER RECOMBINANT 2 2019 187 complet ed HISTORICA L INFORMATI ON - FROM OTHER PROVIDER, [facility] ZOSTER RECOMBINANT 1 2019 187 complet ed HISTORICA L INFORMATI ON - FROM OTHER PROVIDER, [facility] Results Combined list of [...] May 22, 2025 09:43 AM Reporting Lab: [facility] [address] [facility] [address] Performing Lab: [facility] [address] [facility] [address] [facility] CBC ERYTHROCYTE S [#/VOLUME] IN BLOOD BY AUTOMATED COUNT 5.16 10*6/u L 4.10 - 5.70 05/22 Specimen Type: BLOOD No comment entered. Ordering Provider: OTIS BERRY Report Released Date/Time: May 22, 2025 09:43 AM Reporting Lab: [address] [address] Performing Lab: [address] [phone] [place] [address] CBC HEMOGLOBIN [MASS/VOLUM E] IN BLOOD 15.3 g/dL 13.1 - 16.8 05/22 Specimen Type: BLOOD No comment entered. Ordering Provider: OTIS BERRY Report Released Date/Time: May 22, 2025 09:43 AM Reporting Lab: [address] [address] Performing Lab: [address] [address] [facility] CBC HEMATOCRIT [VOLUME FRACTION] OF BLOOD 46.3 38.2 - 48.4 05/22 Specimen Type: BLOOD No comment entered. Ordering Provider: OTIS BERRY Report Released Date/Time: May 22, 2025 09:43 AM Reporting Lab: [address] [address] Performing Lab: [address] [address] [facility] CBC MCV [ENTITIC VOLUME] BY AUTOMATED COUNT 89.7 fL 80.0 - 100.0 05/22 Specimen Type: BLOOD No comment entered. Ordering Provider: OTIS BERRY Report Released Date/Time: May 22, 2025 09:43 AM Reporting Lab: [address] [address] Performing Lab: [address] [address] [facility] CBC MCH [ENTITIC MASS] BY AUTOMATED COUNT 29.7 pg 27.0 - 34.0 05/22 Specimen Type: BLOOD No comment entered. Ordering Provider: OTIS BERRY Report Released Date/Time: May 22, 2025 09:43 AM Reporting Lab: [facility] [address] [place] [phone] Performing Lab: [address] [address] [facility] CBC MCHC [MASS/VOLUM E] BY AUTOMATED COUNT 33.0 g/dL 33.0 - 36.0 05/22 Specimen Type: BLOOD No comment entered. Ordering Provider: OTIS BERRY Report Released Date/Time: May 22, 2025 09:43 AM Reporting Lab: [facility] [address] [place] [phone] Performing Lab: [address] [address] [facility] CBC PLATELETS [#/VOLUME] IN BLOOD BY AUTOMATED COUNT 195 10*3/u L 150 - 400 05/22 Specimen Type: BLOOD No comment entered. Ordering Provider: OTIS BERRY Report Released Date/Time: May 22, 2025 09:43 AM Reporting Lab: [facility] [address] [place] [phone] Performing Lab: [address] [address] [facility] CBC PLATELET MEAN VOLUME [ENTITIC VOLUME] IN BLOOD BY AUTOMATED COUNT 11.5 fL 7.5 - 11.2 05/22 H Specimen Type: BLOOD No comment entered. Ordering Provider: OTIS BERRY Report Released Date/Time: May 22, 2025 09:43 AM Reporting Lab: [facility] [address] [place] [phone] Performing Lab: [address] [address] [facility] CBC ERYTHROCYTE DISTRIBUTIO N WIDTH [RATIO] BY AUTOMATED COUNT 12.2 11.8 - 15.1 05/22 Specimen Type: BLOOD No comment entered. Ordering Provider: OTIS BERRY Report Released Date/Time: May 22, 2025 09:43 AM Reporting Lab: [facility] [address] [facility] [address] Performing Lab: [facility] [address] [facility] [address] [facility] CBC LYMPHOCYTES /100 LEUKOCYTES IN BLOOD BY AUTOMATED COUNT 28 05/22 Specimen Type: BLOOD No comment entered. Ordering Provider: OTIS BERRY Report Released Date/Time: May 22, 2025 09:43 AM Reporting Lab: [facility] [address] [facility] [address] Performing Lab: [facility] [address] [facility] [address] [facility] CBC MONOCYTES/1 00 LEUKOCYTES IN BLOOD BY AUTOMATED COUNT 10 05/22 Specimen Type: BLOOD No comment entered. Ordering Provider: OTIS BERRY Report Released Date/Time: May 22, 2025 09:43 AM Reporting Lab: [facility] [address] [facility] [address] Performing Lab: [facility] [address] [facility] [address] [facility] CBC NEUTROPHILS /100 LEUKOCYTES IN BLOOD BY AUTOMATED COUNT 59 05/22 Specimen Type: BLOOD No comment entered. Ordering Provider: OTIS BERRY Report Released Date/Time: May 22, 2025 09:43 AM Reporting Lab: [facility] [address] [facility] [address] Performing Lab: [facility] [address] [facility] [address] [facility] CBC EOSINOPHILS /100 LEUKOCYTES IN BLOOD BY AUTOMATED COUNT 1 05/22 Specimen Type: BLOOD No comment entered. Ordering Provider: OTIS BERRY Report Released Date/Time: May 22, 2025 09:43 AM Reporting Lab: [facility] [address] [facility] [address] Performing Lab: [address] [address] [facility] CBC BASOPHILS/1 00 LEUKOCYTES IN BLOOD BY AUTOMATED COUNT 1 05/22 Specimen Type: BLOOD No comment entered. Ordering Provider: OTIS BERRY Report Released Date/Time: May 22, 2025 09:43 AM Reporting Lab: [address] [address] Performing Lab: [address] [address] [facility] CBC LYMPHOCYTES [#/VOLUME] IN BLOOD BY AUTOMATED COUNT 1.54 10*3/u L 0.77 - 4.50 05/22 Specimen Type: BLOOD No comment entered. Ordering Provider: OTIS BERRY Report Released Date/Time: May 22, 2025 09:43 AM Reporting Lab: [address] [address] Performing Lab: [address] [address] [facility] CBC MONOCYTES [#/VOLUME] IN BLOOD BY AUTOMATED COUNT 0.57 10*3/u L 0.19 - 0.80 05/22 Specimen Type: BLOOD No comment entered. Ordering Provider: OTIS BERRY Report Released Date/Time: May 22, 2025 09:43 AM Reporting Lab: [address] [address] Performing Lab: [address] [address] [facility] CBC NEUTROPHILS [#/VOLUME] IN BLOOD BY AUTOMATED COUNT 3.22 10*3/u L 2.10 - 8.00 05/22 Specimen Type: BLOOD No comment entered. Ordering Provider: OTIS BERRY Report Released Date/Time: May 22, 2025 09:43 AM Reporting Lab: [address] [address] Performing Lab: [address] [address] [facility] CBC EOSINOPHILS [#/VOLUME] IN BLOOD BY AUTOMATED COUNT 0.06 10*3/u L 0.00 - 0.60 05/22 Specimen Type: BLOOD No comment entered. Ordering Provider: OTIS BERRY Report Released Date/Time: May 22, 2025 09:43 AM Reporting Lab: [address] [address] Performing Lab: [address] [phone] [place] [address] CBC BASOPHILS [#/VOLUME] IN BLOOD BY AUTOMATED COUNT 0.05 10*3/u L 0.00 - 0.20 05/22 Specimen Type: BLOOD No comment entered. Ordering Provider: OTIS BERRY Report Released Date/Time: May 22, 2025 09:43 AM Reporting Lab: [address] [address] Performing Lab: [address] [phone] [place] [address] COMPREHENS TRIP METABOLIC PANEL CREATININE [MASS/VOLUM E] IN SERUM OR PLASMA 0.92 mg/dL 0.7 - 1.3 05/22 Specimen Type: PLASMA Comment: No hemolysis noted. Ordering Provider: OTIS BERRY Report Released Date/Time: May 22, 2025 09:43 AM Reporting Lab: [address] [address] Performing Lab: [address] [address] [facility] COMPREHENS TRIP METABOLIC PANEL UREA NITROGEN [MASS/VOLUM E] IN SERUM OR PLASMA 14.8 mg/dL 9.0 - 25.0 05/22 Specimen Type: PLASMA Comment: No hemolysis noted. Ordering Provider: OTIS BERRY Report Released Date/Time: May 22, 2025 09:43 AM Reporting Lab: [address] [address] Performing Lab: [address] [place] [address] [facility] COMPREHENS TRIP METABOLIC PANEL GLUCOSE [MASS/VOLUM E] IN SERUM OR PLASMA 98 mg/dL 72 - 99 05/22 Specimen Type: PLASMA Comment: No hemolysis noted. Ordering Provider: OTIS BERRY Report Released Date/Time: May 22, 2025 09:43 AM Reporting Lab: [address] [address] Performing Lab: [address] [address] [facility] COMPREHENS TRIP METABOLIC PANEL SODIUM [MOLES/VOLU ME] IN SERUM OR PLASMA 140 meq/L 136 - 145 05/22 Specimen Type: PLASMA Comment: No hemolysis noted. Ordering Provider: OTIS BERRY Report Released Date/Time: May 22, 2025 09:43 AM Reporting Lab: [address] [address] Performing Lab: [address] [address] [facility] COMPREHENS TRIP METABOLIC PANEL POTASSIUM [MOLES/VOLU ME] IN SERUM OR PLASMA 4.7 meq/L 3.5 - 5 05/22 Specimen Type: PLASMA Comment: No hemolysis noted. Ordering Provider: OTIS BERRY Report Released Date/Time: May 22, 2025 09:43 AM Reporting Lab: [address] [address] Performing Lab: [address] [address] [facility] COMPREHENS TRIP METABOLIC PANEL CHLORIDE [MOLES/VOLU ME] IN SERUM OR PLASMA 106 meq/L 98 - 107 05/22 Specimen Type: PLASMA Comment: No hemolysis noted. Ordering Provider: OTIS BERRY Report Released Date/Time: May 22, 2025 09:43 AM Reporting Lab: [address] [address] Performing Lab: [facility] [place] [address] [address] [facility] COMPREHENS TRIP METABOLIC PANEL CARBON DIOXIDE, TOTAL [MOLES/VOLU ME] IN SERUM OR PLASMA 27 meq/L 22 - 31 05/22 Specimen Type: PLASMA Comment: No hemolysis noted. Ordering Provider: OTIS BERRY Report Released Date/Time: May 22, 2025 09:43 AM Reporting Lab: [address] [address] Performing Lab: [address] [address] [facility] COMPREHENS TRIP METABOLIC PANEL CALCIUM [MASS/VOLUM E] IN SERUM OR PLASMA 9.7 mg/dL 8.4 - 10.4 05/22 Specimen Type: PLASMA Comment: No hemolysis noted. Ordering Provider: OTIS BERRY Report Released Date/Time: May 22, 2025 09:43 AM Reporting Lab: [address] [address] Performing Lab: [address] [address] [facility] COMPREHENS TRIP METABOLIC PANEL PROTEIN [MASS/VOLUM E] IN SERUM OR PLASMA 7.1 g/dL 6 - 8.6 05/22 Specimen Type: PLASMA Comment: No hemolysis noted. Ordering Provider: OTIS BERRY Report Released Date/Time: May 22, 2025 09:43 AM Reporting Lab: [address] [address] Performing Lab: [address] [address] [facility] COMPREHENS TRIP METABOLIC PANEL ALBUMIN [MASS/VOLUM E] IN SERUM OR PLASMA 4.3 g/dL 3.4 - 5 05/22 Specimen Type: PLASMA Comment: No hemolysis noted. Ordering Provider: OTIS BERRY Report Released Date/Time: May 22, 2025 09:43 AM Reporting Lab: [address] [address] Performing Lab: [facility] [address] [facility] [address] [facility] COMPREHENS TRIP METABOLIC PANEL BILIRUBIN.T OTAL [MASS/VOLUM E] IN SERUM OR PLASMA 1.2 mg/dL 0.2 - 1.2 05/22 Specimen Type: PLASMA Comment: No hemolysis noted. Ordering Provider: OTIS BERRY Report Released Date/Time: May 22, 2025 09:43 AM Reporting Lab: [place] [address] [facility] [address] Performing Lab: [place] [address] [facility] [address] [facility] COMPREHENS TRIP METABOLIC PANEL ALKALINE PHOSPHATASE [ENZYMATIC ACTIVITY/VO LUME] IN SERUM OR PLASMA 53 U/L 40 - 150 05/22 Specimen Type: PLASMA Comment: No hemolysis noted. Ordering Provider: OTIS BERRY Report Released Date/Time: May 22, 2025 09:43 AM Reporting Lab: [place] [address] [facility] [address] Performing Lab: [place] [address] [facility] [address] [facility] COMPREHENS TRIP METABOLIC PANEL ASPARTATE AMINOTRANSF ERASE [ENZYMATIC ACTIVITY/VO LUME] IN SERUM OR PLASMA 32 U/L 5 - 34 05/22 Specimen Type: PLASMA Comment: No hemolysis noted. Ordering Provider: OTIS BERRY Report Released Date/Time: May 22, 2025 09:43 AM Reporting Lab: [place] [address] [facility] [address] Performing Lab: [address] [address] [facility] COMPREHENS TRIP METABOLIC PANEL ALANINE AMINOTRANSF ERASE [ENZYMATIC ACTIVITY/VO LUME] IN SERUM OR PLASMA 20 U/L 8 - 40 05/22 Specimen Type: PLASMA Comment: No hemolysis noted. Ordering Provider: OTIS BERRY Report Released Date/Time: May 22, 2025 09:43 AM Reporting Lab: [facility] [address] [facility] [address] Performing Lab: [address] [address] [facility] COMPREHENS TRIP METABOLIC PANEL GLOMERULAR FILTRATION RATE/1.73 SQ M.PREDICTED [VOLUME RATE/AREA] IN SERUM, PLASMA OR BLOOD BY CREATININE- BASED FORMULA (CKD-EPI 2020) 90.6 60 05/22 Specimen Type: PLASMA Comment: No hemolysis noted. Ordering Provider: OTIS BERRY Report Released Date/Time: May 22, 2025 09:43 AM Reporting Lab: [address] [address] Performing Lab: [address] [address] [place] [address] HGA1C HEMOGLOBIN A1C/HEMOGLO BIN.TOTAL IN BLOOD 5.1 4.0 - 6.0 05/22 Specimen Type: BLOOD No comment entered. Ordering Provider: OTIS BERRY Report Released Date/Time: May 22, 2025 09:43 AM Reporting Lab: [facility] [address] [place] [phone] Performing Lab: [address] [address] [facility] LIPID PANEL (STL) CHOLESTEROL [MASS/VOLUM E] IN SERUM OR PLASMA 143 mg/dL 0 - 200 05/22 Specimen Type: PLASMA Comment: No hemolysis noted. Ordering Provider: OTIS BERRY Report Released Date/Time: May 22, 2025 09:43 AM Reporting Lab: [facility] [address] [place] [address] Performing Lab: [address] [address] [facility] LIPID PANEL (STL) TRIGLYCERID E [MASS/VOLUM E] IN SERUM OR PLASMA 76 mg/dL 0 - 150 05/22 Specimen Type: PLASMA Comment: No hemolysis noted. Ordering Provider: OTIS BERRY Report Released Date/Time: May 22, 2025 09:43 AM Reporting Lab: [facility] [address] [facility] [address] Performing Lab: [address] [address] [facility] LIPID PANEL (L) CHOLESTEROL IN LDL [MASS/VOLUM E] IN SERUM OR PLASMA BY CALCULATION 74 mg/dL 05/22 Specimen Type: PLASMA Comment: No hemolysis noted. Ordering Provider: OTIS BERRY Report Released Date/Time: May 22, 2025 09:43 AM Reporting Lab: [place] [address] [facility] [address] Performing Lab: [address] [phone] [place] [address] LIPID PANEL (L) CHOLESTEROL IN HDL [MASS/VOLUM E] IN SERUM OR PLASMA 54 mg/dL 40 05/22 Specimen Type: PLASMA Comment: No hemolysis noted. Ordering Provider: OTIS BERRY Report Released Date/Time: May 22, 2025 09:43 AM Reporting Lab: [place] [address] [facility] [address] Performing Lab: [address] [address] [place] [address] PROST. SPECIFIC AG.(PB-STL ) PROSTATE SPECIFIC AG [...] May 22, 2025 09:43 AM Reporting Lab: [address] [address] Performing Lab: [address] [address] [facility] TSH W/ REFLEX FT4 (STL) THYROTROPIN [UNITS/VOLU ME] IN SERUM OR PLASMA 1.451 u[IU]/ mL 0.47 - 5 05/22 Specimen Type: PLASMA No comment entered. Ordering Provider: OTIS BERRY Report Released Date/Time: May 22, 2025 09:43 AM Reporting Lab: [facility] [address] [facility] [address] Performing Lab: [place] [address] [facility] [address] [facility] VITAMIN D, 25-HYDROXY 25-HYDROXYV ITAMIN D3 [...] 22, 2025 09:43 AM Reporting Lab: [facility] [address] [facility] [address] Performing Lab: [place] [address] [facility] [address] [facility] Vital Signs Combined list of inpatient and outpatient Vital Signs from Department of Defense and Veterans Affairs, ranging from 12 months to all on record, depending upon the facility. Vital Sign Value Date Comments Source SYSTOLIC BLOOD PRESSURE 161 05/22/2025 09:17:55 [facility] DIASTOLIC BLOOD PRESSURE 89 05/22/2025 09:17:55 [facility] PULSE OXIMETRY 98 % 05/22/2025 09:17:[address] [facility] WEIGHT 186.8 05/22/2025 09:17:55 [facility] BMI 28 kg/m2 05/22/2025 09:17:55 [facility] PAIN 0 05/22/2025 09:17:55 [facility] HEIGHT 68 05/22/2025 09:17:55 [facility] PULSE 68 05/22/2025 09:17:55 [facility] RESPIRATION 16 05/22/2025 09:17:[address] [facility] Encounters Combined list of: 1) Encounters from Department of Veterans Affairs facilities going backup to the last 18 months, not all [place] inpatient encounters are included; 2) Encounters from the Department of Defense facilities going backup to 280 months. Location Location Details Encounter Type Encounter Number Reason For Visit Attending Provider ADM Date DC Date Status Disposition Source [facility] Outpatient Encounter [id number] 01/25 [facility] Outpatient Encounter [id number] 02/11 [facility] N [facility] Outpatient Encounter [id number] 04/19 [facility] Outpatient Encounter [id number] 04/25 [facility] Outpatient Encounter [id number] 05/17 [facility] [address] [facility] PH1 ASSMT&MGMT NQHP 21-30 [id number] Diagnos is: ICD-10- CM Z02.9 Encount er for adminis trative examina tions, unspeci fied GUANAKO GONZALEZ A 05/17 [facility] Outpatient Encounter [id number] 05/20 [facility] Outpatient Encounter [id number] 05/21 [facility] Outpatient Encounter [id number] 05/22 [facility] OFFICE O/P NEW MOD 45 MIN [id number] Diagnos is: ICD-10- CM R73.9 Hypergl ycemia, unspeci fied KRISTI,T ODD 05/22 [facility] PH1 ASSMT&MGMT NQHP 11-20 [id number] Diagnos is: ICD-10- CM Z02.9 Encount er for adminis trative examina tions, unspeci fied PALLONE,JE NNIFER A 05/27 [facility] Outpatient Encounter [id number] BERRY,T ODD 05/28 [facility] Outpatient Encounter [id number] 05/29 [facility] [place] [address] ASSMT&MGMT NQHP 21-30 [id number] Diagnos is: ICD-10- CM Z71.3 Dietary trauma counsellor ing and surveil VERN Koenig 06/04 [facility] Social History Combined list of available smoking, tobacco, and other social history from Department of Defense and Veterans Affairs facilities. Social History Type Response Date Comment Patc rosaura Tobacco smoking status NHIS VA-TOBACCO USE FORMER CIGARETTES 05/17/2025 [facility] History of tobacco use MO-TOBACCO NEVER USED OTHER TYPE 05/17/2025 [facility]
[2025-06-11 11:28] VITALS: BP 147/77; PULSE 63; RESP 18; TEMP 36.3; O2SAT 99
--- OUTSIDE RECORDS SUMMARY | 2025-06-11 11:39 | XMS_ITS | Clinical Summary ---
Author Organization [facility] al Address [address] [place] [address] Care Team Providers Care Hoof And Shoe Inspector Name Role Phone Hector Cobian MD Primary Care Provider [phone] [phone] Allergies Active Allergy Reactions Criticality Noted Date Comments No Known Allergies Other (See comments) Low Reaction: Medications omega 8-zoo-ilh-fish oil (Fish Oil) 100-160-1,000 mg capsule 1,000 mg daily Activ e multivit with min-folic acid (Adult Multivitamin Extra VitD3) 200 mcg tablet,chewable Rx: Multivitamin Adult - Tablet Active metoprolol tartrate (LOPRESSOR) 50 mg immediate release tablet TAKE 1 TABLET BY MOUTH ONCE A DAY WITH FOOD 90 tablet 3 0 Active Active Problems Problem Noted Date Diagnosed Date Paroxysmal ventricular tachycardia 11/15/2019 Assessment & Plan (07/15/2020 4:24 PM CDT): Structurally normal heart. Completely suppressed with metoprolol. Continue Assessment & Plan (11/15/2019 3:06 PM BUILDING MECHANIC): Structurally normal heart. Completely suppressed with metoprolol. Continue. Obesity (BMI 30-39.9) 11/15/2019 Assessment & Plan (07/15/2020 4:24 PM CDT): Congratulated patient on weight loss. Continue exercise Assessment & Plan (11/15/2019 3:07 PM BUILDING MECHANIC): Encouraged dieting and exercise History of rectal cancer 03/21/2018 Surgical History Surgery Date Site/Laterality Comments ANUS SURGERY 11/28/2013 Transanal Endoscopy Microsurgery Medical History Medical History Date Comments Irregular heart rhythm Colorectal cancer (HCC) HL (hearing loss) Tinnitus Family History Medical History Relation Name Comments Cancer Father Family history of malignant neoplasm - (Added by TW Conv) Diabetes Paternal Grandmother Family history of diabetes mellitus - (Added by TW Conv) Relation Name Status Comments Father Paternal Grandmother Social History Tobacco Use Types Packs/Day Years Used Date Smoking Tobacco: Former Smokeless Tobacco: Never Alcohol Use Standard Drinks/Week Comments No 0 (1 standard drink = 0.6 oz pur e alcohol) Personal Safety Answer Date Recorded Getting School Help Needed Not on file 12/23 Sex and Gender Information Value Date Recorded Sex Assigned at Not on file Legal Sex Male 7:32 PM BUILDING MECHANIC Gender Identity Not on file Sexual Orientation Not on file Obstetrics History Last Filed Vital Signs Vital Sign Reading Time Taken Comments Blood Pressure 120/70 07/15/2020 4:11 PM CDT Pulse 59 07/15/2020 4:11 PM CDT Temperature 36.3 C (97.3 F) 08/27/2020 1:53 PM BUILDING MECHANIC Respiratory Rate - - Oxygen Saturation 96% 11/29/2013 10:01 AM BUILDING MECHANIC Inhaled Oxygen Concentration - - Weight 88.5 kg (195 lb) 08/27/2020 1:53 PM BUILDING MECHANIC Height 170.2 cm (5' 7) 08/27/2020 1:53 PM BUILDING MECHANIC Body Mass Index 30.54 08/27/2020 1:53 PM BUILDING MECHANIC Plan of Treatment Not on file Insurance [place], [place] [id number] [facility] CHOICE PLUS [facility] CHOICE PLUS Advance Directives For more information, please contact: [phone] Documents on File Type Date Recorded Patient Vendor Analyst Expl anation ADVANCE DIRECTIVE 11/08/2013 12:00 AM [facility] Care Teams Hoof And Shoe Inspector Relationship Specialty Start Date End Date Hector Cobian MD [address] [place] [id number] PCP - General 02/01/17
--- OUTSIDE RECORDS SUMMARY | 2025-06-11 11:39 | XMS_ITS | Clinical Summary ---
Author Organization [facility] Address [address] [place] [address] Care Team Providers Care Ecommerce Analyst Name Role Phone Unavailable Primary Care Provider Unavailabl e Source Comments [facility],non-owned Affiliates and Associated Physician Practices is amultiple site organization consisting of ambulatory clinics and hospital sitesin [place], [place], [place] and [place]. This disclosure is being madepursuant to the Care Everywhere program and may not contain all information available regarding this patient. 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 Gender Identity Not on file Sexual Orientation Not on file Plan of Treatment Health Maintenance Due Date Last Done Comments COLOGUARD (AGES 45-75) - COL ON CA SCREENING 1956 COLON MONITORING 1956 COLONOSCOPY - COLON CA SCREENING 1956 CT COLONOGRAPHY - COLON CA SCREENING 1956 Colorectal Cancer Screening 1956 FIT - COLON CA SCREENING 1956 FLEX SIG - COLON CA SCREENING 1956 LIPID TESTING 1956 HEPATITIS C SCREENING 06/19/1974 DTAP/TDAP/TD VACCINES (1 - Tdap) 1975 PNEUMOCOCCAL VACCINE 50+ (1 of 1 - PCV) 2006 ZOSTER VACCINE (1 of 2) 2006 COVID-19 VACCINE ( - 2023-2 5 season) 2024 DEPRESSION SCREENING 10/10/2024 INFLUENZA VACCINE (#1) 2025 Respiratory Syncytial Virus (RSV) Vaccine Pt: or over 60 yrs (1 - 1-dose 75+ series) 2031 HEPATITIS B VACCINE Aged Out No longe r eligible based on patient's age to complete this topic HIB VACCINE Aged Out No longer eligi ble based on patient's age to complete this topic HPV VACCINE Aged Out No longer eligi ble based on patient's age to complete this topic MENINGOCOCCAL (Group B) VACC INE SHARED DECISION-MAKING Aged Out No longer eligibl e based on patient's age to complete this topic MENINGOCOCCAL GROUPS A/C/Y/W VACCINE Aged Out No longer eligible b ased on patient's age to complete this topic
--- OUTSIDE RECORDS SUMMARY | 2025-06-11 11:39 | XMS_ITS | Clinical Summary ---
Author Organization [facility] Address [address] [place] [address] Care Team Providers Care Garage Manager Name Role Phone Hector Cobian MD Primary Care Provider [phone] Social History Tobacco Use Types Packs/Day Years Used Date Smoking Tobacco: Never Assessed Sex and Gender Information Value Date Recorded Sex Assigned at Not on file Legal Sex Male 7:10 PM CDT Gender Identity Not on file Sexual Orientation Not on file Plan of Treatment Health Maintenance Due Date Last Done Comments Colorectal Cancer Screening Colonoscopy (10 Years) 1956 Hepatitis C 1974 DTaP, Tdap and Td Vaccines ( 1 - Tdap) 1975 Pneumococcal Vaccine: 50+ Ye ars (1 of 1 - PCV) 2006 Zoster Vaccines (1 of 2) 2006 COVID-19 Vaccine ( - 2023-2 5 season) 2024 RSV Immunization or 60+ Years (1 - 1-dose 75+ series) 2031 Meningococcal B Vaccine Aged Out No l onger eligible based on patient's age to complete this topic Meningococcal Vaccine Aged Out No rica alberto eligible based on patient's age to complete this topic RSV Immunizations Under 20 Months Aged Out No longer eligible based on patient's age to complete this topic Care Teams Garage Manager Relationship Specialty Start Date End Date Hector Cobian MD [address] [place] [address] PCP - General 10/26/13
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
== END 2025-06-11 12:02 | disposition short-term general hospital (02) ==
PROVIDERS: PCP Family Medicine
DX: R51.9 Headache, unspecified (principal); M54.2 Cervicalgia; V63.5XXA Driver of heavy transport vehicle injured in collision with car, pick-up truck or van in traffic accident, initial encounter; Z87.891 Personal history of nicotine dependence; I10 Essential (primary) hypertension; Z85.9 Personal history of malignant neoplasm, unspecified
CPT/HCPCS: 99212; G0463

== ENCOUNTER 2025-06-11 12:56 | Emergency (ER) | payer OTHER, SELFPAY ==
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
--- OUTSIDE RECORDS SUMMARY | 2025-06-11 06:38 | XMS_ITS | Continuity of Care Document ---
Author Name [facility] Organization [facility] Care Team Providers Care Box Hinge And Lock Attacher Name Role Phone [facility] Unavailable Unavailable Problems Combined list of problems from [facility] and [facility] facilities. It does not include entries that were removed or entered in error. Problem Status Onset Date Problem Type Date of Resolution Comments Source Benign prostatic hyperplasia Active Condition [facility] Carcinoma of colon Active Condition [facility] Carpal tunnel syndrome of right wrist Active Condition [facility] History of repair of right inguinal hernia using robotic assistance Active Condition [facility] HTN - Hypertension ([facility] [id number]) Active Condition [facility] Hyperglycemia Active Condition [facility] Hyperlipidemia ([facility] [id number]) Active Condition [facility] Diagnosis: ICD-10-CM Z71.3 Dietary counseling and surveillance Active Diagnosis [facility] Diagnosis: ICD-10-CM Z02.9 Encounter for administrative examinations, unspecified Active Diagnosis [facility] Diagnosis: ICD-10-CM R73.9 Hyperglycemia, unspecified Active Diagnosis [facility] Medications Combined list of outpatient medications from [facility] facilities.Medications provided include 1) outpatient medications from the last 15 months, and 2) patient-reported medications. Medication Details Route Status Patient Instructions Prescription Expires Prescription Number Last Dispense Date Ordering Provider Order Date Order Qty Source METOPROLOL SUCCINATE 25MG TAB,SA TAKE ONE-HALF TABLET BY MOUTH ONCE A DAY ORAL ACTIVE TOÑO BERRY 2024 [facility] ROSUVASTATI N TAB TAKE BY MOUTH EVERY EVENING ORAL ACTIVE TOÑO BERRY 2024 [facility] Immunizations Combined list of available immunizations from the [facility] and [facility] facilities. Immunization Series Date Given Administered By Site Reaction Lot Number CVX Code Drug Hassock Maker Status Comments Source INFLUENZA, UNSPECIFIED FORMULATION 2023 88 complet ed HISTORICA L INFORMATI ON - FROM OTHER PROVIDER, [facility] PNEUMOCOCCAL CONJUGATE PCV20, POLYSACCHARID E [id number] CONJUGATE, ADJUVANT, PF 2022 216 complet ed HISTORICA L INFORMATI ON - FROM OTHER PROVIDER, Lot#: [id number] [facility] TDAP 2022 115 complet ed HISTORICA L INFORMATI ON - FROM OTHER PROVIDER, Lot#: [id number] Mfr: SANAMY KRUEGER [facility] COVID-19 (PFIZER), MRNA, LNP-S, PF, 30 MCG/0.3 ML DOSE 2 2020 208 complet ed HISTORICA L INFORMATI ON - FROM OTHER REGISTRY, [facility] COVID-19 (PFIZER), MRNA, LNP-S, PF, 30 MCG/0.3 ML DOSE 1 2020 208 complet ed HISTORICA L INFORMATI ON - FROM OTHER REGISTRY, [facility] INFLUENZA, SPLIT VIRUS, QUADRIVALENT, PF 1 2019 150 complet ed HISTORICA L INFORMATI ON - FROM OTHER REGISTRY, [facility] ZOSTER RECOMBINANT 2 2019 187 complet ed HISTORICA L INFORMATI ON - FROM OTHER PROVIDER, [facility] ZOSTER RECOMBINANT 1 2019 187 complet ed HISTORICA L INFORMATI ON - FROM OTHER PROVIDER, [facility] Results Combined list of recent chemistry, hematology and other laboratory results from Department of Defense and Veterans Affairs, ranging from 15 months to all on record, depending upon the facility. Order Name Results Value Reference Range Date Interpretation Specimen Comments Source CBC LEUKOCYTES [#/VOLUME] IN BLOOD BY AUTOMATED COUNT 5.5 10*3/u L 3.6 - 11.2 05/22 Specimen Type: BLOOD No comment entered. Ordering Provider: OTIS BERRY Report Released Date/Time: May 22, 2025 09:43 AM Reporting Lab: [facility] [address] [facility] [address] Performing Lab: [facility] [address] [facility] [address] [facility] CBC ERYTHROCYTE S [#/VOLUME] IN BLOOD BY AUTOMATED COUNT 5.16 10*6/u L 4.10 - 5.70 05/22 Specimen Type: BLOOD No comment entered. Ordering Provider: OTIS BERRY Report Released Date/Time: May 22, 2025 09:43 AM Reporting Lab: [address] [address] Performing Lab: [address] [phone] [place] [address] CBC HEMOGLOBIN [MASS/VOLUM E] IN BLOOD 15.3 g/dL 13.1 - 16.8 05/22 Specimen Type: BLOOD No comment entered. Ordering Provider: OTIS BERRY Report Released Date/Time: May 22, 2025 09:43 AM Reporting Lab: [address] [address] Performing Lab: [address] [address] [facility] CBC HEMATOCRIT [VOLUME FRACTION] OF BLOOD 46.3 38.2 - 48.4 05/22 Specimen Type: BLOOD No comment entered. Ordering Provider: OTIS BERRY Report Released Date/Time: May 22, 2025 09:43 AM Reporting Lab: [address] [address] Performing Lab: [address] [address] [facility] CBC MCV [ENTITIC VOLUME] BY AUTOMATED COUNT 89.7 fL 80.0 - 100.0 05/22 Specimen Type: BLOOD No comment entered. Ordering Provider: OTIS BERRY Report Released Date/Time: May 22, 2025 09:43 AM Reporting Lab: [address] [address] Performing Lab: [address] [address] [facility] CBC MCH [ENTITIC MASS] BY AUTOMATED COUNT 29.7 pg 27.0 - 34.0 05/22 Specimen Type: BLOOD No comment entered. Ordering Provider: OTIS BERRY Report Released Date/Time: May 22, 2025 09:43 AM Reporting Lab: [facility] [address] [place] [address] Performing Lab: [address] [address] [facility] CBC MCHC [MASS/VOLUM E] BY AUTOMATED COUNT 33.0 g/dL 33.0 - 36.0 05/22 Specimen Type: BLOOD No comment entered. Ordering Provider: OTIS BERRY Report Released Date/Time: May 22, 2025 09:43 AM Reporting Lab: [facility] [address] [place] [address] Performing Lab: [address] [address] [facility] CBC PLATELETS [#/VOLUME] IN BLOOD BY AUTOMATED COUNT 195 10*3/u L 150 - 400 05/22 Specimen Type: BLOOD No comment entered. Ordering Provider: OTIS BERRY Report Released Date/Time: May 22, 2025 09:43 AM Reporting Lab: [facility] [address] [place] [address] Performing Lab: [address] [address] [facility] CBC PLATELET MEAN VOLUME [ENTITIC VOLUME] IN BLOOD BY AUTOMATED COUNT 11.5 fL 7.5 - 11.2 05/22 H Specimen Type: BLOOD No comment entered. Ordering Provider: OTIS BERRY Report Released Date/Time: May 22, 2025 09:43 AM Reporting Lab: [facility] [address] [place] [address] Performing Lab: [address] [address] [facility] CBC ERYTHROCYTE DISTRIBUTIO N WIDTH [RATIO] BY AUTOMATED COUNT 12.2 11.8 - 15.1 05/22 Specimen Type: BLOOD No comment entered. Ordering Provider: OTIS BERRY Report Released Date/Time: May 22, 2025 09:43 AM Reporting Lab: [facility] [address] [facility] [address] Performing Lab: [facility] [address] [facility] [address] [facility] CBC LYMPHOCYTES /100 LEUKOCYTES IN BLOOD BY AUTOMATED COUNT 28 05/22 Specimen Type: BLOOD No comment entered. Ordering Provider: OTIS BERRY Report Released Date/Time: May 22, 2025 09:43 AM Reporting Lab: [facility] [address] [facility] [address] Performing Lab: [facility] [address] [facility] [address] [facility] CBC MONOCYTES/1 00 LEUKOCYTES IN BLOOD BY AUTOMATED COUNT 10 05/22 Specimen Type: BLOOD No comment entered. Ordering Provider: OTIS BERRY Report Released Date/Time: May 22, 2025 09:43 AM Reporting Lab: [facility] [address] [facility] [address] Performing Lab: [facility] [address] [facility] [address] [facility] CBC NEUTROPHILS /100 LEUKOCYTES IN BLOOD BY AUTOMATED COUNT 59 05/22 Specimen Type: BLOOD No comment entered. Ordering Provider: OTIS BERRY Report Released Date/Time: May 22, 2025 09:43 AM Reporting Lab: [facility] [address] [facility] [address] Performing Lab: [facility] [address] [facility] [address] [facility] CBC EOSINOPHILS /100 LEUKOCYTES IN BLOOD BY AUTOMATED COUNT 1 05/22 Specimen Type: BLOOD No comment entered. Ordering Provider: OTIS BERRY Report Released Date/Time: May 22, 2025 09:43 AM Reporting Lab: [facility] [address] [facility] [address] Performing Lab: [address] [address] [facility] CBC BASOPHILS/1 00 LEUKOCYTES IN BLOOD BY AUTOMATED COUNT 1 05/22 Specimen Type: BLOOD No comment entered. Ordering Provider: OTIS BERRY Report Released Date/Time: May 22, 2025 09:43 AM Reporting Lab: [address] [address] Performing Lab: [address] [address] [facility] CBC LYMPHOCYTES [#/VOLUME] IN BLOOD BY AUTOMATED COUNT 1.54 10*3/u L 0.77 - 4.50 05/22 Specimen Type: BLOOD No comment entered. Ordering Provider: OTIS BERRY Report Released Date/Time: May 22, 2025 09:43 AM Reporting Lab: [address] [address] Performing Lab: [address] [address] [facility] CBC MONOCYTES [#/VOLUME] IN BLOOD BY AUTOMATED COUNT 0.57 10*3/u L 0.19 - 0.80 05/22 Specimen Type: BLOOD No comment entered. Ordering Provider: OTIS BERRY Report Released Date/Time: May 22, 2025 09:43 AM Reporting Lab: [address] [address] Performing Lab: [address] [address] [facility] CBC NEUTROPHILS [#/VOLUME] IN BLOOD BY AUTOMATED COUNT 3.22 10*3/u L 2.10 - 8.00 05/22 Specimen Type: BLOOD No comment entered. Ordering Provider: OTIS BERRY Report Released Date/Time: May 22, 2025 09:43 AM Reporting Lab: [address] [address] Performing Lab: [address] [address] [facility] CBC EOSINOPHILS [#/VOLUME] IN BLOOD BY AUTOMATED COUNT 0.06 10*3/u L 0.00 - 0.60 05/22 Specimen Type: BLOOD No comment entered. Ordering Provider: OTIS BERRY Report Released Date/Time: May 22, 2025 09:43 AM Reporting Lab: [address] [address] Performing Lab: [address] [phone] [place] [address] CBC BASOPHILS [#/VOLUME] IN BLOOD BY AUTOMATED COUNT 0.05 10*3/u L 0.00 - 0.20 05/22 Specimen Type: BLOOD No comment entered. Ordering Provider: OTIS BERRY Report Released Date/Time: May 22, 2025 09:43 AM Reporting Lab: [address] [address] Performing Lab: [address] [phone] [place] [address] COMPREHENS TRIP METABOLIC PANEL CREATININE [MASS/VOLUM E] IN SERUM OR PLASMA 0.92 mg/dL 0.7 - 1.3 05/22 Specimen Type: PLASMA Comment: No hemolysis noted. Ordering Provider: OTIS BERRY Report Released Date/Time: May 22, 2025 09:43 AM Reporting Lab: [address] [address] Performing Lab: [address] [address] [facility] COMPREHENS TRIP METABOLIC PANEL UREA NITROGEN [MASS/VOLUM E] IN SERUM OR PLASMA 14.8 mg/dL 9.0 - 25.0 05/22 Specimen Type: PLASMA Comment: No hemolysis noted. Ordering Provider: OTIS BERRY Report Released Date/Time: May 22, 2025 09:43 AM Reporting Lab: [address] [address] Performing Lab: [address] [place] [address] [facility] COMPREHENS TRIP METABOLIC PANEL GLUCOSE [MASS/VOLUM E] IN SERUM OR PLASMA 98 mg/dL 72 - 99 05/22 Specimen Type: PLASMA Comment: No hemolysis noted. Ordering Provider: OTIS BERRY Report Released Date/Time: May 22, 2025 09:43 AM Reporting Lab: [address] [address] Performing Lab: [address] [address] [facility] COMPREHENS TRIP METABOLIC PANEL SODIUM [MOLES/VOLU ME] IN SERUM OR PLASMA 140 meq/L 136 - 145 05/22 Specimen Type: PLASMA Comment: No hemolysis noted. Ordering Provider: OTIS BERRY Report Released Date/Time: May 22, 2025 09:43 AM Reporting Lab: [address] [address] Performing Lab: [address] [address] [facility] COMPREHENS TRIP METABOLIC PANEL POTASSIUM [MOLES/VOLU ME] IN SERUM OR PLASMA 4.7 meq/L 3.5 - 5 05/22 Specimen Type: PLASMA Comment: No hemolysis noted. Ordering Provider: OTIS BERRY Report Released Date/Time: May 22, 2025 09:43 AM Reporting Lab: [address] [address] Performing Lab: [address] [address] [facility] COMPREHENS TRIP METABOLIC PANEL CHLORIDE [MOLES/VOLU ME] IN SERUM OR PLASMA 106 meq/L 98 - 107 05/22 Specimen Type: PLASMA Comment: No hemolysis noted. Ordering Provider: OTIS BERRY Report Released Date/Time: May 22, 2025 09:43 AM Reporting Lab: [address] [address] Performing Lab: [facility] [place] [address] [address] [facility] COMPREHENS TRIP METABOLIC PANEL CARBON DIOXIDE, TOTAL [MOLES/VOLU ME] IN SERUM OR PLASMA 27 meq/L 22 - 31 05/22 Specimen Type: PLASMA Comment: No hemolysis noted. Ordering Provider: OTIS BERRY Report Released Date/Time: May 22, 2025 09:43 AM Reporting Lab: [address] [address] Performing Lab: [address] [address] [facility] COMPREHENS TRIP METABOLIC PANEL CALCIUM [MASS/VOLUM E] IN SERUM OR PLASMA 9.7 mg/dL 8.4 - 10.4 05/22 Specimen Type: PLASMA Comment: No hemolysis noted. Ordering Provider: OTIS BERRY Report Released Date/Time: May 22, 2025 09:43 AM Reporting Lab: [address] [address] Performing Lab: [address] [address] [facility] COMPREHENS TRIP METABOLIC PANEL PROTEIN [MASS/VOLUM E] IN SERUM OR PLASMA 7.1 g/dL 6 - 8.6 05/22 Specimen Type: PLASMA Comment: No hemolysis noted. Ordering Provider: OTIS BERRY Report Released Date/Time: May 22, 2025 09:43 AM Reporting Lab: [address] [address] Performing Lab: [address] [address] [facility] COMPREHENS TRIP METABOLIC PANEL ALBUMIN [MASS/VOLUM E] IN SERUM OR PLASMA 4.3 g/dL 3.4 - 5 05/22 Specimen Type: PLASMA Comment: No hemolysis noted. Ordering Provider: OTIS BERRY Report Released Date/Time: May 22, 2025 09:43 AM Reporting Lab: [address] [address] Performing Lab: [facility] [address] [facility] [address] [facility] COMPREHENS TRIP METABOLIC PANEL BILIRUBIN.T OTAL [MASS/VOLUM E] IN SERUM OR PLASMA 1.2 mg/dL 0.2 - 1.2 05/22 Specimen Type: PLASMA Comment: No hemolysis noted. Ordering Provider: OTIS BERRY Report Released Date/Time: May 22, 2025 09:43 AM Reporting Lab: [place] [address] [facility] [address] Performing Lab: [place] [address] [facility] [address] [facility] COMPREHENS TRIP METABOLIC PANEL ALKALINE PHOSPHATASE [ENZYMATIC ACTIVITY/VO LUME] IN SERUM OR PLASMA 53 U/L 40 - 150 05/22 Specimen Type: PLASMA Comment: No hemolysis noted. Ordering Provider: OTIS BERRY Report Released Date/Time: May 22, 2025 09:43 AM Reporting Lab: [place] [address] [facility] [address] Performing Lab: [place] [address] [facility] [address] [facility] COMPREHENS TRIP METABOLIC PANEL ASPARTATE AMINOTRANSF ERASE [ENZYMATIC ACTIVITY/VO LUME] IN SERUM OR PLASMA 32 U/L 5 - 34 05/22 Specimen Type: PLASMA Comment: No hemolysis noted. Ordering Provider: OTIS BERRY Report Released Date/Time: May 22, 2025 09:43 AM Reporting Lab: [place] [address] [facility] [address] Performing Lab: [address] [address] [facility] COMPREHENS TRIP METABOLIC PANEL ALANINE AMINOTRANSF ERASE [ENZYMATIC ACTIVITY/VO LUME] IN SERUM OR PLASMA 20 U/L 8 - 40 05/22 Specimen Type: PLASMA Comment: No hemolysis noted. Ordering Provider: OTIS BERRY Report Released Date/Time: May 22, 2025 09:43 AM Reporting Lab: [facility] [address] [facility] [address] Performing Lab: [address] [address] [facility] COMPREHENS TRIP METABOLIC PANEL GLOMERULAR FILTRATION RATE/1.73 SQ M.PREDICTED [VOLUME RATE/AREA] IN SERUM, PLASMA OR BLOOD BY CREATININE- BASED FORMULA (CKD-EPI 2020) 90.6 60 05/22 Specimen Type: PLASMA Comment: No hemolysis noted. Ordering Provider: OTIS BERRY Report Released Date/Time: May 22, 2025 09:43 AM Reporting Lab: [address] [address] Performing Lab: [address] [phone] [place] [address] HGA1C HEMOGLOBIN A1C/HEMOGLO BIN.TOTAL IN BLOOD 5.1 4.0 - 6.0 05/22 Specimen Type: BLOOD No comment entered. Ordering Provider: OTIS BERRY Report Released Date/Time: May 22, 2025 09:43 AM Reporting Lab: [facility] [address] [place] [address] Performing Lab: [address] [address] [facility] LIPID PANEL (STL) CHOLESTEROL [MASS/VOLUM E] IN SERUM OR PLASMA 143 mg/dL 0 - 200 05/22 Specimen Type: PLASMA Comment: No hemolysis noted. Ordering Provider: OTIS BERRY Report Released Date/Time: May 22, 2025 09:43 AM Reporting Lab: [facility] [address] [place] [address] Performing Lab: [address] [address] [facility] LIPID PANEL (STL) TRIGLYCERID E [MASS/VOLUM E] IN SERUM OR PLASMA 76 mg/dL 0 - 150 05/22 Specimen Type: PLASMA Comment: No hemolysis noted. Ordering Provider: OTIS BERRY Report Released Date/Time: May 22, 2025 09:43 AM Reporting Lab: [facility] [address] [facility] [address] Performing Lab: [address] [address] [facility] LIPID PANEL (L) CHOLESTEROL IN LDL [MASS/VOLUM E] IN SERUM OR PLASMA BY CALCULATION 74 mg/dL 05/22 Specimen Type: PLASMA Comment: No hemolysis noted. Ordering Provider: OTIS BERRY Report Released Date/Time: May 22, 2025 09:43 AM Reporting Lab: [place] [address] [facility] [address] Performing Lab: [address] [phone] [place] [address] LIPID PANEL (L) CHOLESTEROL IN HDL [MASS/VOLUM E] IN SERUM OR PLASMA 54 mg/dL 40 05/22 Specimen Type: PLASMA Comment: No hemolysis noted. Ordering Provider: OTIS BERRY Report Released Date/Time: May 22, 2025 09:43 AM Reporting Lab: [place] [address] [facility] [address] Performing Lab: [address] [phone] [place] [address] PROST. SPECIFIC AG.(PB-STL ) PROSTATE SPECIFIC AG [...] May 22, 2025 09:43 AM Reporting Lab: [address] [address] Performing Lab: [address] [address] [facility] TSH W/ REFLEX FT4 (STL) THYROTROPIN [UNITS/VOLU ME] IN SERUM OR PLASMA 1.451 u[IU]/ mL 0.47 - 5 05/22 Specimen Type: PLASMA No comment entered. Ordering Provider: OTIS BERRY Report Released Date/Time: May 22, 2025 09:43 AM Reporting Lab: [facility] [address] [facility] [address] Performing Lab: [place] [address] [facility] [address] [facility] VITAMIN D, 25-HYDROXY 25-HYDROXYV ITAMIN D3 [MASS/VOLUM [...] May 22, 2025 09:43 AM Reporting Lab: [facility] [address] [facility] [address] Performing Lab: [place] [address] [facility] [address] [facility] Vital Signs Combined list of inpatient and outpatient Vital Signs from Department of Defense and Veterans Affairs, ranging from 12 months to all on record, depending upon the facility. Vital Sign Value Date Comments Source SYSTOLIC BLOOD PRESSURE 161 05/22/2025 09:17:55 [facility] DIASTOLIC BLOOD PRESSURE 89 05/22/2025 09:17:55 [facility] PULSE OXIMETRY 98 % 05/22/2025 09:17:55 [facility] WEIGHT 186.8 05/22/2025 09:17:55 [facility] BMI 28 kg/m2 05/22/2025 09:17:55 [facility] PAIN 0 05/22/2025 09:17:55 [facility] HEIGHT 68 05/22/2025 09:17:55 [facility] PULSE 68 05/22/2025 09:17:55 [facility] RESPIRATION 16 05/22/2025 09:17:55 [facility] Encounters Combined list of: 1) Encounters from Department of Veterans Affairs facilities going backup to the last 18 months, not all ID inpatient encounters are included; 2) Encounters from the Department of Defense facilities going backup to 280 months. Location Location Details Encounter Type Encounter Number Reason For Visit Attending Provider ADM Date DC Date Status Disposition Source [facility] Outpatient Encounter [id number] 01/25 [facility] Outpatient Encounter [id number] 02/11 [facility] N [facility] Outpatient Encounter [id number] 04/19 [facility] Outpatient Encounter [id number] 04/25 [facility] Outpatient Encounter [id number] 05/17 [facility] N [facility] PH1 ASSMT&MGMT NQHP 21-30 [id number] Diagnos is: ICD-10- CM Z02.9 Encount er for adminis trative examina tions, unspeci fied GUANAKO GONZALEZ A 05/17 [facility] Outpatient Encounter [id number] 05/20 [facility] Outpatient Encounter [id number] 05/21 [facility] Outpatient Encounter [id number] 05/22 [facility] OFFICE O/P NEW MOD 45 MIN [id number] Diagnos is: ICD-10- CM R73.9 Hypergl ycemia, unspeci fied KRISTI,T ODD 05/22 [facility] PH1 ASSMT&MGMT NQHP 11-20 [id number] Diagnos is: ICD-10- CM Z02.9 Encount er for adminis trative examina tions, unspeci fied PALLONE,JE NNIFER A 05/27 [facility] Outpatient Encounter [id number] BERRY,T ODD 05/28 [facility] Outpatient Encounter [id number] 05/29 [facility] [place] [id number] ASSMT&MGMT NQHP 21-30 [id number] Diagnos is: ICD-10- CM Z71.3 Dietary senior genetic counselor ing and surveil VERN Koenig 06/04 [facility] Social History Combined list of available smoking, tobacco, and other social history from [facility] Defense and [facility] facilities. Social History Type Response Date Comment Patc rosaura Tobacco smoking status NHIS VA-TOBACCO USE FORMER CIGARETTES 05/17/2025 [facility] History of tobacco use ID-TOBACCO NEVER USED OTHER TYPE 05/17/2025 [facility]
--- OUTSIDE RECORDS SUMMARY | 2025-06-11 06:38 | XMS_ITS | Continuity of Care Document ---
Author Name [facility] Organization [facility] Care Team Providers Care Crap Shooter Name Role Phone [facility] Unavailable Unavailable Problems Combined list of problems from [facility] and [facility] facilities. It does not include entries that were removed or entered in error. Problem Status Onset Date Problem Type Date of Resolution Comments Source Benign prostatic hyperplasia Active Condition [facility] Carcinoma of colon Active Condition [facility] Carpal tunnel syndrome of right wrist Active Condition [facility] History of repair of right inguinal hernia using robotic assistance Active Condition [facility] HTN - Hypertension ([facility] [id number]) Active Condition [facility] Hyperglycemia Active Condition [facility] Hyperlipidemia ([facility] [id number]) Active Condition [facility] Diagnosis: ICD-10-CM Z71.3 Dietary counseling and surveillance Active Diagnosis [facility] Diagnosis: ICD-10-CM Z02.9 Encounter for administrative examinations, unspecified Active Diagnosis [facility] Diagnosis: ICD-10-CM R73.9 Hyperglycemia, unspecified Active Diagnosis [facility] Medications Combined list of outpatient medications from [facility] facilities.Medications provided include 1) outpatient medications from the last 15 months, and 2) patient-reported medications. Medication Details Route Status Patient Instructions Prescription Expires Prescription Number Last Dispense Date Ordering Provider Order Date Order Qty Source METOPROLOL SUCCINATE 25MG TAB,SA TAKE ONE-HALF TABLET BY MOUTH ONCE A DAY ORAL ACTIVE TOÑO BERRY 2024 [facility] ROSUVASTATI N TAB TAKE BY MOUTH EVERY EVENING ORAL ACTIVE TOÑO BERRY 2024 [facility] Immunizations Combined list of available immunizations from the [facility] and [facility] facilities. Immunization Series Date Given Administered By Site Reaction Lot Number CVX Code Drug Probation Officer Status Comments Source INFLUENZA, UNSPECIFIED FORMULATION 2023 88 complet ed HISTORICA L INFORMATI ON - FROM OTHER PROVIDER, [facility] PNEUMOCOCCAL CONJUGATE PCV20, POLYSACCHARID E [id number] CONJUGATE, ADJUVANT, PF 2022 216 complet ed HISTORICA L INFORMATI ON - FROM OTHER PROVIDER, Lot#: [id number] [facility] TDAP 2022 115 complet ed HISTORICA L INFORMATI ON - FROM OTHER PROVIDER, Lot#: [id number] Mfr: SANAMY KRUEGER [facility] COVID-19 (PFIZER), MRNA, LNP-S, PF, 30 MCG/0.3 ML DOSE 2 2020 208 complet ed HISTORICA L INFORMATI ON - FROM OTHER REGISTRY, [facility] COVID-19 (PFIZER), MRNA, LNP-S, PF, 30 MCG/0.3 ML DOSE 1 2020 208 complet ed HISTORICA L INFORMATI ON - FROM OTHER REGISTRY, [facility] INFLUENZA, SPLIT VIRUS, QUADRIVALENT, PF 1 2019 150 complet ed HISTORICA L INFORMATI ON - FROM OTHER REGISTRY, [facility] ZOSTER RECOMBINANT 2 2019 187 complet ed HISTORICA L INFORMATI ON - FROM OTHER PROVIDER, [facility] ZOSTER RECOMBINANT 1 2019 187 complet ed HISTORICA L INFORMATI ON - FROM OTHER PROVIDER, [facility] Results Combined list of recent [...] May 22, 2025 09:43 AM Reporting Lab: [facility] [address] [facility] [place] [place] [address] Performing Lab: [facility] [address] [facility] [address] [facility] CBC ERYTHROCYTE S [#/VOLUME] IN BLOOD BY AUTOMATED COUNT 5.16 10*6/u L 4.10 - 5.70 05/22 Specimen Type: BLOOD No comment entered. Ordering Provider: OTIS BERRY Report Released Date/Time: May 22, 2025 09:43 AM Reporting Lab: [address] [address] Performing Lab: [address] [phone] [place] [address] CBC HEMOGLOBIN [MASS/VOLUM E] IN BLOOD 15.3 g/dL 13.1 - 16.8 05/22 Specimen Type: BLOOD No comment entered. Ordering Provider: OTIS BERRY Report Released Date/Time: May 22, 2025 09:43 AM Reporting Lab: [address] [address] Performing Lab: [address] [address] [facility] CBC HEMATOCRIT [VOLUME FRACTION] OF BLOOD 46.3 38.2 - 48.4 05/22 Specimen Type: BLOOD No comment entered. Ordering Provider: OTIS BERRY Report Released Date/Time: May 22, 2025 09:43 AM Reporting Lab: [address] [address] Performing Lab: [address] [address] [facility] CBC MCV [ENTITIC VOLUME] BY AUTOMATED COUNT 89.7 fL 80.0 - 100.0 05/22 Specimen Type: BLOOD No comment entered. Ordering Provider: OTIS BERRY Report Released Date/Time: May 22, 2025 09:43 AM Reporting Lab: [address] [address] Performing Lab: [address] [address] [facility] CBC MCH [ENTITIC MASS] BY AUTOMATED COUNT 29.7 pg 27.0 - 34.0 05/22 Specimen Type: BLOOD No comment entered. Ordering Provider: OTIS BERRY Report Released Date/Time: May 22, 2025 09:43 AM Reporting Lab: [facility] [address] [place] [address] Performing Lab: [address] [address] [facility] CBC MCHC [MASS/VOLUM E] BY AUTOMATED COUNT 33.0 g/dL 33.0 - 36.0 05/22 Specimen Type: BLOOD No comment entered. Ordering Provider: OTIS BERRY Report Released Date/Time: May 22, 2025 09:43 AM Reporting Lab: [facility] [address] [place] [address] Performing Lab: [address] [address] [facility] CBC PLATELETS [#/VOLUME] IN BLOOD BY AUTOMATED COUNT 195 10*3/u L 150 - 400 05/22 Specimen Type: BLOOD No comment entered. Ordering Provider: OTIS BERRY Report Released Date/Time: May 22, 2025 09:43 AM Reporting Lab: [facility] [address] [place] [phone] Performing Lab: [address] [address] [facility] CBC PLATELET MEAN VOLUME [ENTITIC VOLUME] IN BLOOD BY AUTOMATED COUNT 11.5 fL 7.5 - 11.2 05/22 H Specimen Type: BLOOD No comment entered. Ordering Provider: OTIS BERRY Report Released Date/Time: May 22, 2025 09:43 AM Reporting Lab: [facility] [address] [place] [phone] Performing Lab: [address] [address] [facility] CBC ERYTHROCYTE DISTRIBUTIO N WIDTH [RATIO] BY AUTOMATED COUNT 12.2 11.8 - 15.1 05/22 Specimen Type: BLOOD No comment entered. Ordering Provider: OTIS BERRY Report Released Date/Time: May 22, 2025 09:43 AM Reporting Lab: [facility] [address] [facility] [address] Performing Lab: [facility] [address] [facility] [place] [address] [facility] CBC LYMPHOCYTES /100 LEUKOCYTES IN BLOOD BY AUTOMATED COUNT 28 05/22 Specimen Type: BLOOD No comment entered. Ordering Provider: OTIS BERRY Report Released Date/Time: May 22, 2025 09:43 AM Reporting Lab: [facility] [address] [facility] [place] [address] Performing Lab: [facility] [address] [facility] [place] [address] [facility] CBC MONOCYTES/1 00 LEUKOCYTES IN BLOOD BY AUTOMATED COUNT 10 05/22 Specimen Type: BLOOD No comment entered. Ordering Provider: OTIS BERRY Report Released Date/Time: May 22, 2025 09:43 AM Reporting Lab: [facility] [address] [facility] [address] Performing Lab: [facility] [address] [facility] [place] [address] [facility] CBC NEUTROPHILS /100 LEUKOCYTES IN BLOOD BY AUTOMATED COUNT 59 05/22 Specimen Type: BLOOD No comment entered. Ordering Provider: OTIS BERRY Report Released Date/Time: May 22, 2025 09:43 AM Reporting Lab: [facility] [address] [facility] [place] [address] Performing Lab: [facility] [address] [facility] [place] [address] [facility] CBC EOSINOPHILS /100 LEUKOCYTES IN BLOOD BY AUTOMATED COUNT 1 05/22 Specimen Type: BLOOD No comment entered. Ordering Provider: OTIS BERRY Report Released Date/Time: May 22, 2025 09:43 AM Reporting Lab: [facility] [address] [facility] [place] [address] Performing Lab: [address] [address] [facility] CBC BASOPHILS/1 00 LEUKOCYTES IN BLOOD BY AUTOMATED COUNT 1 05/22 Specimen Type: BLOOD No comment entered. Ordering Provider: OTIS BERRY Report Released Date/Time: May 22, 2025 09:43 AM Reporting Lab: [address] [address] Performing Lab: [address] [address] [facility] CBC LYMPHOCYTES [#/VOLUME] IN BLOOD BY AUTOMATED COUNT 1.54 10*3/u L 0.77 - 4.50 05/22 Specimen Type: BLOOD No comment entered. Ordering Provider: OTIS BERRY Report Released Date/Time: May 22, 2025 09:43 AM Reporting Lab: [address] [address] Performing Lab: [address] [address] [facility] CBC MONOCYTES [#/VOLUME] IN BLOOD BY AUTOMATED COUNT 0.57 10*3/u L 0.19 - 0.80 05/22 Specimen Type: BLOOD No comment entered. Ordering Provider: OTIS BERRY Report Released Date/Time: May 22, 2025 09:43 AM Reporting Lab: [address] [address] Performing Lab: [address] [address] [facility] CBC NEUTROPHILS [#/VOLUME] IN BLOOD BY AUTOMATED COUNT 3.22 10*3/u L 2.10 - 8.00 05/22 Specimen Type: BLOOD No comment entered. Ordering Provider: OTIS BERRY Report Released Date/Time: May 22, 2025 09:43 AM Reporting Lab: [address] [address] Performing Lab: [address] [address] [facility] CBC EOSINOPHILS [#/VOLUME] IN BLOOD BY AUTOMATED COUNT 0.06 10*3/u L 0.00 - 0.60 05/22 Specimen Type: BLOOD No comment entered. Ordering Provider: OTIS BERRY Report Released Date/Time: May 22, 2025 09:43 AM Reporting Lab: [address] [address] Performing Lab: [address] [phone] [place] [address] CBC BASOPHILS [#/VOLUME] IN BLOOD BY AUTOMATED COUNT 0.05 10*3/u L 0.00 - 0.20 05/22 Specimen Type: BLOOD No comment entered. Ordering Provider: OTIS BERRY Report Released Date/Time: May 22, 2025 09:43 AM Reporting Lab: [address] [address] Performing Lab: [address] [phone] [place] [address] COMPREHENS TRIP METABOLIC PANEL CREATININE [MASS/VOLUM E] IN SERUM OR PLASMA 0.92 mg/dL 0.7 - 1.3 05/22 Specimen Type: PLASMA Comment: No hemolysis noted. Ordering Provider: OTIS BERRY Report Released Date/Time: May 22, 2025 09:43 AM Reporting Lab: [address] [address] Performing Lab: [address] [address] [facility] COMPREHENS TRIP METABOLIC PANEL UREA NITROGEN [MASS/VOLUM E] IN SERUM OR PLASMA 14.8 mg/dL 9.0 - 25.0 05/22 Specimen Type: PLASMA Comment: No hemolysis noted. Ordering Provider: OTIS BERRY Report Released Date/Time: May 22, 2025 09:43 AM Reporting Lab: [address] [address] Performing Lab: [address] [place] [address] [facility] COMPREHENS TRIP METABOLIC PANEL GLUCOSE [MASS/VOLUM E] IN SERUM OR PLASMA 98 mg/dL 72 - 99 05/22 Specimen Type: PLASMA Comment: No hemolysis noted. Ordering Provider: OTIS BERRY Report Released Date/Time: May 22, 2025 09:43 AM Reporting Lab: [address] [address] Performing Lab: [address] [address] [facility] COMPREHENS TRIP METABOLIC PANEL SODIUM [MOLES/VOLU ME] IN SERUM OR PLASMA 140 meq/L 136 - 145 05/22 Specimen Type: PLASMA Comment: No hemolysis noted. Ordering Provider: OTIS BERRY Report Released Date/Time: May 22, 2025 09:43 AM Reporting Lab: [address] [address] Performing Lab: [address] [address] [facility] COMPREHENS TRIP METABOLIC PANEL POTASSIUM [MOLES/VOLU ME] IN SERUM OR PLASMA 4.7 meq/L 3.5 - 5 05/22 Specimen Type: PLASMA Comment: No hemolysis noted. Ordering Provider: OTIS BERRY Report Released Date/Time: May 22, 2025 09:43 AM Reporting Lab: [address] [address] Performing Lab: [address] [address] [facility] COMPREHENS TRIP METABOLIC PANEL CHLORIDE [MOLES/VOLU ME] IN SERUM OR PLASMA 106 meq/L 98 - 107 05/22 Specimen Type: PLASMA Comment: No hemolysis noted. Ordering Provider: OTIS BERRY Report Released Date/Time: May 22, 2025 09:43 AM Reporting Lab: [address] [address] Performing Lab: [facility] [address] [address] [facility] COMPREHENS TRIP METABOLIC PANEL CARBON DIOXIDE, TOTAL [MOLES/VOLU ME] IN SERUM OR PLASMA 27 meq/L 22 - 31 05/22 Specimen Type: PLASMA Comment: No hemolysis noted. Ordering Provider: OTIS BERRY Report Released Date/Time: May 22, 2025 09:43 AM Reporting Lab: [address] [address] Performing Lab: [address] [address] [facility] COMPREHENS TRIP METABOLIC PANEL CALCIUM [MASS/VOLUM E] IN SERUM OR PLASMA 9.7 mg/dL 8.4 - 10.4 05/22 Specimen Type: PLASMA Comment: No hemolysis noted. Ordering Provider: OTIS BERRY Report Released Date/Time: May 22, 2025 09:43 AM Reporting Lab: [address] [address] Performing Lab: [address] [address] [facility] COMPREHENS TRIP METABOLIC PANEL PROTEIN [MASS/VOLUM E] IN SERUM OR PLASMA 7.1 g/dL 6 - 8.6 05/22 Specimen Type: PLASMA Comment: No hemolysis noted. Ordering Provider: OTIS BERRY Report Released Date/Time: May 22, 2025 09:43 AM Reporting Lab: [address] [address] Performing Lab: [address] [address] [facility] COMPREHENS TRIP METABOLIC PANEL ALBUMIN [MASS/VOLUM E] IN SERUM OR PLASMA 4.3 g/dL 3.4 - 5 05/22 Specimen Type: PLASMA Comment: No hemolysis noted. Ordering Provider: OTIS BERRY Report Released Date/Time: May 22, 2025 09:43 AM Reporting Lab: [address] [address] Performing Lab: [facility] [address] [facility] [place] [address] [facility] COMPREHENS TRIP METABOLIC PANEL BILIRUBIN.T OTAL [MASS/VOLUM E] IN SERUM OR PLASMA 1.2 mg/dL 0.2 - 1.2 05/22 Specimen Type: PLASMA Comment: No hemolysis noted. Ordering Provider: OTIS BERRY Report Released Date/Time: May 22, 2025 09:43 AM Reporting Lab: [place] [address] [facility] [place] [address] Performing Lab: [place] [address] [facility] [place] [address] [facility] COMPREHENS TRIP METABOLIC PANEL ALKALINE PHOSPHATASE [ENZYMATIC ACTIVITY/VO LUME] IN SERUM OR PLASMA 53 U/L 40 - 150 05/22 Specimen Type: PLASMA Comment: No hemolysis noted. Ordering Provider: OTIS BERRY Report Released Date/Time: May 22, 2025 09:43 AM Reporting Lab: [place] [address] [facility] [place] [address] Performing Lab: [place] [address] [facility] [place] [address] [facility] COMPREHENS TRIP METABOLIC PANEL ASPARTATE AMINOTRANSF ERASE [ENZYMATIC ACTIVITY/VO LUME] IN SERUM OR PLASMA 32 U/L 5 - 34 05/22 Specimen Type: PLASMA Comment: No hemolysis noted. Ordering Provider: OTIS BERRY Report Released Date/Time: May 22, 2025 09:43 AM Reporting Lab: [place] [address] [facility] [place] [address] Performing Lab: [address] [address] [facility] COMPREHENS TRIP METABOLIC PANEL ALANINE AMINOTRANSF ERASE [ENZYMATIC ACTIVITY/VO LUME] IN SERUM OR PLASMA 20 U/L 8 - 40 05/22 Specimen Type: PLASMA Comment: No hemolysis noted. Ordering Provider: OTIS BERRY Report Released Date/Time: May 22, 2025 09:43 AM Reporting Lab: [facility] [address] [facility] [address] Performing Lab: [address] [address] [facility] COMPREHENS TRIP METABOLIC PANEL GLOMERULAR FILTRATION RATE/1.73 SQ M.PREDICTED [VOLUME RATE/AREA] IN SERUM, PLASMA OR BLOOD BY CREATININE- BASED FORMULA (CKD-EPI 2020) 90.6 60 05/22 Specimen Type: PLASMA Comment: No hemolysis noted. Ordering Provider: OTIS BERRY Report Released Date/Time: May 22, 2025 09:43 AM Reporting Lab: [address] [address] Performing Lab: [address] [phone] [place] [address] HGA1C HEMOGLOBIN A1C/HEMOGLO BIN.TOTAL IN BLOOD 5.1 4.0 - 6.0 05/22 Specimen Type: BLOOD No comment entered. Ordering Provider: OTIS BERRY Report Released Date/Time: May 22, 2025 09:43 AM Reporting Lab: [facility] [address] [place] [address] Performing Lab: [address] [address] [facility] LIPID PANEL (STL) CHOLESTEROL [MASS/VOLUM E] IN SERUM OR PLASMA 143 mg/dL 0 - 200 05/22 Specimen Type: PLASMA Comment: No hemolysis noted. Ordering Provider: OTIS BERRY Report Released Date/Time: May 22, 2025 09:43 AM Reporting Lab: [facility] [address] [place] [address] Performing Lab: [address] [address] [facility] LIPID PANEL (STL) TRIGLYCERID E [MASS/VOLUM E] IN SERUM OR PLASMA 76 mg/dL 0 - 150 05/22 Specimen Type: PLASMA Comment: No hemolysis noted. Ordering Provider: OTIS BERRY Report Released Date/Time: May 22, 2025 09:43 AM Reporting Lab: [facility] [address] [facility] [place] [address] Performing Lab: [address] [address] [facility] LIPID PANEL (L) CHOLESTEROL IN LDL [MASS/VOLUM E] IN SERUM OR PLASMA BY CALCULATION 74 mg/dL 05/22 Specimen Type: PLASMA Comment: No hemolysis noted. Ordering Provider: OTIS BERRY Report Released Date/Time: May 22, 2025 09:43 AM Reporting Lab: [place] [address] [facility] [place] [address] Performing Lab: [address] [phone] [place] [address] LIPID PANEL (L) CHOLESTEROL IN HDL [MASS/VOLUM E] IN SERUM OR PLASMA 54 mg/dL 40 05/22 Specimen Type: PLASMA Comment: No hemolysis noted. Ordering Provider: OTIS BERRY Report Released Date/Time: May 22, 2025 09:43 AM Reporting Lab: [place] [address] [facility] [place] [address] Performing Lab: [address] [phone] [place] [address] PROST. SPECIFIC AG.(PB-STL ) PROSTATE SPECIFIC AG [...] May 22, 2025 09:43 AM Reporting Lab: [address] [address] Performing Lab: [address] [address] [facility] TSH W/ REFLEX FT4 (STL) THYROTROPIN [UNITS/VOLU ME] IN SERUM OR PLASMA 1.451 u[IU]/ mL 0.47 - 5 05/22 Specimen Type: PLASMA No comment entered. Ordering Provider: OTIS BERRY Report Released Date/Time: May 22, 2025 09:43 AM Reporting Lab: [facility] [address] [facility] [address] Performing Lab: [place] [address] [facility] [place] [address] [facility] VITAMIN D, 25-HYDROXY 25-HYDROXYV ITAMIN D3 [...] May 22, 2025 09:43 AM Reporting Lab: [facility] [address] [facility] [place] [address] Performing Lab: [place] [address] [facility] [place] [address] [facility] Vital Signs Combined list of inpatient and outpatient Vital Signs from Department of Defense and Veterans Affairs, ranging from 12 months to all on record, depending upon the facility. Vital Sign Value Date Comments Source SYSTOLIC BLOOD PRESSURE 161 05/22/2025 09:17:55 [facility] DIASTOLIC BLOOD PRESSURE 89 05/22/2025 09:17:55 [facility] PULSE OXIMETRY 98 % 05/22/2025 09:17:55 [facility] WEIGHT 186.8 05/22/2025 09:17:55 [facility] BMI 28 kg/m2 05/22/2025 09:17:55 [facility] PAIN 0 05/22/2025 09:17:55 [facility] HEIGHT 68 05/22/2025 09:17:55 [facility] PULSE 68 05/22/2025 09:17:55 [facility] RESPIRATION 16 05/22/2025 09:17:55 [facility] Encounters Combined list of: 1) Encounters from Department of Veterans Affairs facilities going backup to the last 18 months, not all OR inpatient encounters are included; 2) Encounters from the Department of Defense facilities going backup to 280 months. Location Location Details Encounter Type Encounter Number Reason For Visit Attending Provider ADM Date DC Date Status Disposition Source [facility] Outpatient Encounter [id number] 01/25 [facility] Outpatient Encounter [id number] 02/11 [facility] N [facility] Outpatient Encounter [id number] 04/19 [facility] Outpatient Encounter [id number] 04/25 [facility] Outpatient Encounter [id number] 05/17 [facility] N [facility] PH1 ASSMT&MGMT NQHP 21-30 [id number] Diagnos is: ICD-10- CM Z02.9 Encount er for adminis trative examina tions, unspeci fied GUANAKO GONZALEZ A 05/17 [facility] Outpatient Encounter [id number] 05/20 [facility] Outpatient Encounter [id number] 05/21 [facility] Outpatient Encounter [id number] 05/22 [facility] OFFICE O/P NEW MOD 45 MIN [id number] Diagnos is: ICD-10- CM R73.9 Hypergl ycemia, unspeci fied KRISTI,T ODD 05/22 [facility] PH1 ASSMT&MGMT NQHP 11-20 [id number] Diagnos is: ICD-10- CM Z02.9 Encount er for adminis trative examina tions, unspeci fied PALLONE,JE NNIFER A 05/27 [facility] Outpatient Encounter [id number] BERRY,T ODD 05/[address] [facility] Outpatient Encounter [id number] 05/[address] [facility] [place] [address] ASSMT&MGMT NQHP 21-30 [id number] Diagnos is: ICD-10- CM Z71.3 Dietary careers counsellor ing and surveil VERN Koenig 06/04 [facility] Social History Combined list of available smoking, tobacco, and other social history from Department of Defense and Veterans Affairs facilities. Social History Type Response Date Comment Patc rosaura Tobacco smoking status NHIS VA-TOBACCO USE FORMER CIGARETTES 05/17/2025 [facility] History of tobacco use OR-TOBACCO NEVER USED OTHER TYPE 05/17/2025 [facility]
[2025-06-11 13:02] VITALS: BP 145/74; PULSE 86; RESP 14; TEMP 36.8; O2SAT 99
--- OUTSIDE RECORDS SUMMARY | 2025-06-11 13:07 | XMS_ITS | Clinical Summary ---
Author Organization [facility] Address [address] [place] [address] Care Team Providers Care Spike Machine Heater Name Role Phone Hector Cobian MD Primary Care Provider +1- [phone] Social History Tobacco Use Types Packs/Day Years [...] COVID-19 Vaccine ( - 2023-2 5 season) 2025 RSV Immunization or 60+ Years (1 - [...] age to complete this topic Care Teams Spike Machine Heater Relationship Specialty Start Date End Date Hector Cobian MD [address] [place] [address] PCP - General 10/26/13
--- OUTSIDE RECORDS SUMMARY | 2025-06-11 13:07 | XMS_ITS | Clinical Summary ---
Author Organization [facility] Address [address] [place] [address] Care Team Providers Care Operating Room Assistant Name Role Phone Unavailable Primary Care Provider Unavailabl e Source Comments [facility],non-owned Affiliates and Associated Physician Practices is amultiple site organization consisting of ambulatory clinics and hospital sitesin [place], [place], [place] and [place]. This disclosure is being madepursuant to the Care Everywhere program and may not contain all information available regarding this patient. 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
--- OUTSIDE RECORDS SUMMARY | 2025-06-11 13:07 | XMS_ITS | Clinical Summary ---
Author Organization [facility] al Address [address] [place] [address] Care Team Providers Care Lime Vat Tender Name Role Phone Hector Cobian MD Primary Care Provider [phone] [phone] Allergies Active Allergy Reactions Criticality Noted Date Comments No Known Allergies Other (See comments) Low Reaction: Medications omega 9-lbo-seg-fish oil (Fish Oil) 100-160-1,000 mg capsule 1,000 [...] Continue Assessment & Plan (11/15/2019 3:06 PM LOAD BUILDER): Structurally normal heart. Completely suppressed with metoprolol. Continue. Obesity (BMI 30-39.9) 11/15/2019 Assessment & Plan (07/15/2020 4:24 PM CDT): Congratulated patient on weight loss. Continue exercise Assessment & Plan (11/15/2019 3:07 PM LOAD BUILDER): Encouraged dieting and exercise History of rectal [...] on file Legal Sex Male 7:32 PM LOAD BUILDER Gender Identity Not on file Sexual Orientation Not on file Obstetrics History Last Filed Vital Signs Vital Sign Reading Time Taken Comments Blood Pressure 120/70 07/15/2020 4:11 PM CDT Pulse 59 07/15/2020 4:11 PM CDT Temperature 36.3 C (97.3 F) 08/27/2020 1:53 PM LOAD BUILDER Respiratory Rate - - Oxygen Saturation 96% 11/29/2013 10:01 AM LOAD BUILDER Inhaled Oxygen Concentration - - Weight 88.5 kg (195 lb) 08/27/2020 1:53 PM LOAD BUILDER Height 170.2 cm (5' 7) 08/27/2020 1:53 PM LOAD BUILDER Body Mass Index 30.54 08/27/2020 1:53 PM LOAD BUILDER Plan of Treatment Not on file Insurance [place], [place] [phone] [facility] CHOICE PLUS [facility] CHOICE PLUS Advance Directives For more information, please contact: [phone] Documents on File Type Date Recorded Patient Glass Sagger Expl anation ADVANCE DIRECTIVE 11/08/2013 12:00 AM RISA [facility] Care Teams Lime Vat Tender Relationship Specialty Start Date End Date Hector Cobian MD [address] [place] [id number] PCP - General 02/01/17
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
--- OUTSIDE RECORDS SUMMARY | 2025-06-11 16:04 | XMS_ITS | Clinical Summary ---
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 Completely suppressed with metoprolol. Continue. Obesity (BMI 30-39.9) 11/15/2019 Assessment & Plan (07/15/2020 4:24 PM CDT): Congratulated patient on weight loss. 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 Gender Identity Not on file Sexual Orientation Not on file Obstetrics History Last Filed Vital Signs Vital Sign Reading Time Taken Comments Blood Pressure 120/70 07/15/2020 4:11 PM CDT Pulse 59 07/15/2020 4:11 PM CDT Temperature 36.3 C (97.3 F) 08/27/2020 1:53 PM MAINTENANCE ENGINEER Respiratory Rate - - Oxygen Saturation 96% 11/29/2013 10:01 AM MAINTENANCE ENGINEER Inhaled Oxygen Concentration - - Weight 88.5 kg (195 lb) 08/27/2020 1:53 PM MAINTENANCE ENGINEER Height 170.2 cm (5' 7) 08/27/2020 1:53 PM MAINTENANCE ENGINEER Body Mass Index 30.54 08/27/2020 1:53 PM MAINTENANCE ENGINEER Plan of Treatment Not on file Insurance [place], [place] [id number] [facility] [employer] [facility] H[facility]/PPO Address: [address] [address] [place] [address] [facility] [employer] [facility] [employer]/PPO Address: [address] [address] [place] [address] Advance Directives For more information, please contact: [phone] Documents on File Type Date Recorded Patient Anesthesiologist Assistant Certified Expl anation ADVANCE DIRECTIVE 11/08/2013 12:00 AM [facility] Care Teams Factory Process Workers Relationship Specialty Start Date End Date Hector Cobian MD [address] [place] [id number] PCP - General 02/01/17
--- OUTSIDE RECORDS SUMMARY | 2025-06-11 16:04 | XMS_ITS | Clinical Summary ---
Author Organization [facility] Address [address] [place] [id number] Care Team Providers Care Risk Consultant Name Role Phone Hector Cobian MD Primary Care Provider [phone] Social History Tobacco Use Types Packs/Day Years [...] age to complete this topic Care Teams Risk Consultant Relationship Specialty Start Date End Date Hector Cobian MD [address] [place] [address] PCP - General 10/26/13
--- OUTSIDE RECORDS SUMMARY | 2025-06-11 16:04 | XMS_ITS | Clinical Summary ---
Author Organization [facility] Address [address] [place] [address] Care Team Providers Care Health Safety Specialist Name Role Phone Unavailable Primary Care Provider Unavailabl e Source Comments [facility] [employer],non-owned Affiliates and Associated Physician Practices is amultiple site organization consisting of ambulatory clinics and hospital sitesin [place], [place], [place] and [place]. This disclosure is being madepursuant to the Care Everywhere program and may not contain all information available regarding this patient. Last updated 18.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
[2025-06-11 16:45] VITALS: BP 154/97; PULSE 80; RESP 16; TEMP 36.8; O2SAT 96
== END 2025-06-11 16:46 | disposition home or self-care (01) ==
PROVIDERS: Emergency Provider Family Medicine; PCP Family Medicine
DX: S29.011A Strain of muscle and tendon of front wall of thorax, initial encounter (principal); V89.2XXA Person injured in unspecified motor-vehicle accident, traffic, initial encounter; I10 Essential (primary) hypertension; Z87.891 Personal history of nicotine dependence
CPT/HCPCS: 70450; 71046; 71100; 72125; 73080; 73502; 99284

== ENCOUNTER 2025-07-25 10:30 | Outpatient (RCR) | payer OTHER, SELFPAY ==
--- NOTE | 2025-06-21 11:07 | OPREHPOC ---
Outpatient Therapy Plan of Care This is a Multidisciplinary Plan of Care that may contain components documented by all disciplines (PT, OT, and ST.) PT Problem 1 PT Problem #1 Knowledge Deficit PT Goal 1 Goal / Goal Update Pt. will demo good understanding of diagnosis and prognosis, HEPs. Target Visit 4 PT Problem 2 PT Problem #2 Pain PT Goal 1 Goal / Goal Update Pt will report?improved pain of 1-2/10 at worst when lifting 2# overhead. Target Visit 6 PT Problem 3 PT Problem #3 Impaired Range of Motion PT Goal 1 Goal / Goal Update 1. Pt will demo WNL cervical and lumbar active ROM to improve mobility and posture. 2. Pt will demo full active ROM to B shoulders without compensatory patterns. Target Visit 6 PT Problem 4 PT Problem #4 Impaired Strength PT Goal 1 Goal / Goal Update 1. Pt will demo 4/5 or more muscle strength to all tested muscles. 2. Pt will perform lifting 10# weight overhead x 5 without discomfort and compensatory trunk lean. 3. Pt will lift and carry 10# with proper body mechanics and without pain/discomfort. Target Visit 6
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
== END 2025-08-05 14:40 | disposition home or self-care (01) ==
LOC: ANHPT 10:30
PROVIDERS: PCP Family Medicine; Visit Provider Family Medicine
DX: M25.512 Pain in left shoulder (principal)
CPT/HCPCS: 97014; 97035; 97110; 97112; 97140; 97161; 97530; 97750; G0283